=== PATIENT | male | born 1975 | race Caucasian/White ===

== ENCOUNTER 2019-05-12 12:02 | Outpatient (CLI) | payer OTHER, SELFPAY ==
--- NOTE | ~2019-05-12 | XR_ITS ---
EXAMINATION: XR chest 2V DATE: 05/12/2019 12:24 INDICATION: Fever and shortness of breath TECHNIQUE: PA and lateral views of the chest are obtained. COMPARISON: 07/25/2012 FINDINGS: The lungs are free of acute opacities. There is no pleural effusion or pneumothorax. The ca rdiomediastinal silhouette is normal. The visualized bones and soft tissues are unremarkable. IMPRESSION: 1. No acute cardiopulmonary abnormality. Reviewed, dictated and finalized at location A.
== END 2019-05-12 12:03 | disposition home or self-care (01) ==
LOC: ANHIMG 12:09
PROVIDERS: PCP Internal Medicine; Visit Provider Nurse Practitioner
DX: R50.9 Fever, unspecified (principal); R06.02 Shortness of breath; J02.9 Acute pharyngitis, unspecified
CPT/HCPCS: 71046

== ENCOUNTER 2019-05-26 16:23 | Emergency (ER) | payer OTHER, SELFPAY ==
--- NOTE | ~2019-05-26 | XR_ITS ---
EXAMINATION: XR chest 1V portable EXAM DATE: 05/26/2019 16:54 INDICATION: Fever, shortness of breath, headache, sore throat. TECHNIQUE: Frontal and lateral projections of the chest obtained and reviewed. Comparison is made to prior examination from 05/12/2019. FINDINGS: The lungs are clear. There are no pleural effusions. The cardiomediastinal silhouette is within normal limits. There is no pneumothorax suspected. The bones and soft tissues are unremarka ble. IMPRESSION: No acute cardiopulmonary findings. Reviewed, dictated and finalized at location A.
[2019-05-26 16:36] VITALS: BP 123/92; PULSE 77; RESP 20; O2SAT 98
--- NOTE | 2019-05-26 16:39 | ECG_ITS ---
Measurements Intervals [place] Rate: 53 P: 43 WV: 186 QRS: 1 QRSD: 127 T: 35 QT: 402 QTc: 381 Interpretive Statements SINUS BRADYCARDIA INTRAVENTRICULAR CONDUCTION DELAY DELAYED PRECORDIAL R/S TRANSITION BORDERLINE ECG Electronically Signed On 05-27-2019 7:13:55 CDT by Andre Ortiz D.O.
--- NOTE | 2019-05-26 16:40 | ED.GENADULT ---
HPI - General Adult General Chief complaint: Shortness of Breath/Dyspnea <Jordin Valenzuela PA-C - Last Filed: 05/26/19 18:47> Stated complaint: fever, st, diaz <Jordin Valenzuela PA-C - Last Filed: 05/26/19 18:47> Time Seen by Provider: 05/26/19 16:25 <Jordin Valenzuela PA-C - Last Filed: 05/26/19 18:47> Source: patient <Jordin Valenzuela PA-C - Last Filed: 05/26/19 18:47> Mode of arrival: ambulatory <Jordin Valenzuela PA-C - Last Filed: 05/26/19 18:47> Limitations: no limitations <Jordin Valenzuela PA-C - Last Filed: 05/26/19 18:47> History of Present Illness HPI narrative: Patient is a 43-year-old male who presents to emergency department for evaluation of left-sided pleuritic chest pain for the last week had been having rhinorrhea and congestion sore throat initially several weeks ago with nonproductive cough which have resolved but now for the last week is been having pleuritic chest pain and feeling slightly dyspneic has taken Tylenol for his symptoms with no improvement patient denies any current URI symptoms. . Pain is worse with deep breathing and movement. Patient denies vomiting diarrhea. Patient denies sick contact <Jordin Valenzuela PA-C - Last Filed: 05/26/19 18:47> Related Data Allergies/adverse reactions: Allergies Allergy/AdvReac Type Severity Reaction Status Date / Time No Known Allergies Allergy Unknown Unverified 05/26/19 16:36 <Jordin Valenzuela PA-C - Last Filed: 05/26/19 18:47> Review of Systems Review of Systems: All systems reviewed & are unremarkable except as noted in HPI and below <Jordin Valenzuela PA-C - Last Filed: 05/26/19 18:47> PMFSH Past Medical History Medical History: Medical History Bronchitis GERD (gastroesophageal reflux disease) Osteoarthritis <Jordin Valenzuela PA-C - Last Filed: 05/26/19 18:47> Surgical History Surgical History: Surgical History History of vasectomy <Jordin Valenzuela PA-C - Last Filed: 05/26/19 18:47> Family History Family History: Family History (Updated 12/02/18 @ 09:09 by DOCTOR UNKNOWN) Mother Hypertension <Jordin Valenzuela PA-C - Last Filed: 05/26/19 18:47> Social History Social History: Social History Smoking status: Former smoker Alcohol intake: current <Jordin Valenzuela PA-C - Last Filed: 05/26/19 18:47> Exam Narrative: Exam Narrative: GENERAL: Well-appearing, well-nourished, and in no acute distress. HEAD: Normocephalic, atraumatic. EYES: PERRLA and EOMI. ENT: Nares clear, no rhinorrhea or epistaxis. Mucous membranes moist. Oropharynx without tonsillar hypertrophy exudate or other lesions. Bilateral TMs pearly meeks nonbulging CHEST: Clear to auscultation. No respiratory distress. No wheezes rales or rhonchi. Tenderness of the left chest wall HEART: Regular rate and rhythm. No murmur heard. Normal peripheral pulses. ABDOMEN: Soft, nontender, nondistended EXTREMITIES: Normal range of motion. No edema. SKIN: Warm, dry, no rash. NEURO: No focal deficits. Alert and oriented x3. Cranial nerves II through XII grossly intact PSYCH: Normal mood and affect. <Jordin Valenzuela PA-C - Last Filed: 05/26/19 18:47> Course Course Emergency Course: Patient in the room in no distress aware of case findings treatment plan and diagnosis agreeing to follow-up as directed or to return if symptoms worsen or concerns <Jordin Valenzuela PA-C - Last Filed: 05/26/19 18:47> Vital Signs Vital signs: Vital Signs Pulse Rate 77 05/26/19 16:36 Respiratory Rate 20 05/26/19 16:36 Blood Pressure 123/92 H 05/26/19 16:36 Pulse Oximetry 98 05/26/19 16:36 Temperature 36.4 C 05/26/19 18:10 Pulse Rate 68 05/26/19 19:09 Respiratory Rate 20 05/26/19 19:09 Blood Pressure 125/94 H
[2019-05-26 16:53] VITALS: TEMP 37.2
[2019-05-26 18:00] VITALS: PULSE 70
[2019-05-26 18:10] VITALS: BP 130/93; PULSE 55; RESP 10; TEMP 36.4; O2SAT 100; O2SAT 99
[2019-05-26 18:15] LABS: Basophils Absolute Auto 0.1 K/mm3 (0.0-0.1); Basophils Percent Auto 0.8 % (0.2-1.2); Eosinophils Percent Auto 0.5 % (0-4.4); Hematocrit 44.4 % (42.0-52.0); Hemoglobin 15.9 g/dL (14.0-18.0); Immature Granulocyte Absolute 0.02 K/mm3 (0.00-0.031); Immature Granulocyte Percent A 0.3 % (0-0.5); Lymphocytes Absolute Auto 2.09 K/mm3 (0.9-3.2); Lymphocytes Percent Auto 28.1 % (18.3-44.2); Mean Corpuscular HGB Conc 35.8 g/dl (32-36); Mean Corpuscular Hemoglobin 32.6 pg (26-34); Mean Platelet Volume 10.6 fl (7.4-10.4); Monocytes Absolute Auto 0.4 K/mm3 (0.1-0.6); Monocytes Percent Auto 5.2 % (2.6-8.5); Neutrophils Absolute Auto 4.8 K/mm3 (1.3-6.7); Neutrophils Percent Auto 65.1 % (45.5-73.1); Platelet Count Result 184 k/mm3 (150-375); Red Blood Count 4.88 M/mm3 (4.6-6.20); Red Cell Distribution Width 11.9 % (11.5-14.5); White Blood Count 7.4 K/mm3 (4.5-10.0)
[2019-05-26 18:28] LABS: Lipase 88 U/L (23-300)
[2019-05-26 18:29] LABS: Alanine Aminotransferase 15 U/L (4-50); Albumin Level 4.5 g/dL (3.5-5.1); Alkaline Phosphatase 63 U/L (38-126); Aspartate Amino Transferase 21 U/L (17-59); Bilirubin,Total 0.7 mg/dL (0.2-1.3); Blood Urea Nitrogen 21 mg/dL (9-20); Calcium 9.7 mg/dL (8.4-10.2); Carbon Dioxide 22 mmol/L (22-30); Chloride 108 mmol/L (98-107); D Dimer < 0.22 ug/mL (<0.48); Estimated CRCL calculation 99 ml/min; Estimated Glomerular Filt Rate > 60; Glucose 86 mg/dL (75-110); Sodium 139 mmol/L (137-145)
[2019-05-26 18:39] LABS: Troponin I < 0.012 ng/mL (0.000-0.034)
[2019-05-26 19:09] VITALS: BP 125/94; PULSE 68; RESP 20; O2SAT 99
== END 2019-05-26 19:11 | disposition home or self-care (01) ==
PROVIDERS: Emergency Medicine Emergency Medical Services; Emergency Provider Emergency Medicine; PCP Internal Medicine
DX: R07.81 Pleurodynia (principal); K21.9 Gastro-esophageal reflux disease without esophagitis; M19.90 Unspecified osteoarthritis, unspecified site; Z87.891 Personal history of nicotine dependence; R00.1 Bradycardia, unspecified; I45.9 Conduction disorder, unspecified; R94.31 Abnormal electrocardiogram [ECG] [EKG]
CPT/HCPCS: 36415; 71045; 80048; 80076; 83690; 84484; 85025; 85380; 93005; 99284

== ENCOUNTER 2019-06-02 12:29 | Outpatient (CLI) | payer OTHER, SELFPAY ==
--- NOTE | ~2019-06-02 | CT_ITS ---
EXAMINATION: CT chest w con DATE: 06/02/2019 13:42 INDICATION: Chest pain, shortness of breath, fever TECHNIQUE: Computed tomography (CT) of the chest was performed without intravenous contrast. Automate d exposure control and iterative reconstruction technique were employed. Exam dose: 267.22 mGy-cm to zhou exam DLP. COMPARISON: 05/26/2019 portable AP chest FINDINGS: Normal heart size. No pericardial or pleural effusion. No hilar or mediastinal mass lesion or lymphadenopathy. The thyroid gland is normal size and enhances homogeneously, without evidence of any mass lesion. No thoracic aortic aneurysm or dissection. Normal morphology of the adrenal glands. Included upper abdominal structures are unremarkable, other than diverticulosis of the colon. Included skeletal structures are unremarkable. IMPRESSION: No significant abnormality of the chest Diverticulosis of the colon Reviewed, dictated and finalized at Location A. Reviewed, dictated and finalized at location A.
[2019-06-02 13:16] LABS: Erythrocyte Sedimentation Rate 4 mm/hr (0-20)
[2019-06-02 13:25] LABS: Monoscreen Negative (Negative); Positive Monotest Control Positive (Positive)
[2019-06-02 13:26] LABS: Negative Monotest Control Negative (Negative)
[2019-06-04 19:55] LABS: CMV IgG Antibody <0.60 U/mL (<0.60)
[2019-06-04 20:46] LABS: CMV IgM Antibody <30.00 AU/mL (<30.00)
== END 2019-06-02 12:30 | disposition home or self-care (01) ==
LOC: ANHIMG 12:29
PROVIDERS: PCP Internal Medicine; Visit Provider Internal Medicine
DX: R50.9 Fever, unspecified (principal); R07.89 Other chest pain; K57.90 Diverticulosis of intestine, part unspecified, without perforation or abscess without bleeding
CPT/HCPCS: 36415; 71260; 85652; 86308; 86644; 86645; Q9967

== ENCOUNTER 2019-06-11 11:51 | Outpatient (CLI) | payer OTHER, SELFPAY ==
[2019-06-11 12:31] LABS: Influenza Control Positive
== END 2019-06-11 11:52 | disposition home or self-care (01) ==
LOC: ANHLAB 11:53
PROVIDERS: PCP Internal Medicine; Visit Provider Internal Medicine
DX: R50.9 Fever, unspecified (principal)
CPT/HCPCS: 87081; 87804; 87880

== ENCOUNTER 2021-07-28 11:15 | Outpatient (CLI) | payer OTHER, SELFPAY ==
[2021-07-28 11:41] LABS: Add Urine Microscopic? NO; Appearance Urine Clear (Clear); Bilirubin Urine Negative (Negative); Blood Urine Negative (Negative); Color Urine Yellow (Yellow); Glucose Urine UA Negative (Negative); Ketones Urine Negative (Negative); Leukocyte Esterase Ur Negative LEU/UL (Negative); Nitrate Urine Negative (Negative); Protein Urine Negative (Negative); Urobilinogen Urine 0.2 mg/dL (<2.0); pH Urine 6.5 (5.0-9.0)
[2021-07-28 11:57] LABS: HIV 1/2 Ab P24 Ag Result Negative (Negative)
[2021-07-28 12:18] LABS: Hepatitis C Virus Antibody Negative (Negative)
[2021-07-28 17:18] LABS: Rapid Plasma Reagin Non-Reactive (NonReactive)
[2021-08-01 16:22] LABS: Herpes Simplex Type 1 DNA PCR Not Detected
== END 2021-07-28 11:16 | disposition home or self-care (01) ==
LOC: ANHLAB 11:16
PROVIDERS: PCP Internal Medicine; Visit Provider Nurse Practitioner
DX: R30.0 Dysuria (principal); R23.1 Pallor
CPT/HCPCS: 36415; 81003; 86592; 86703; 86803; 87491; 87529; 87591; G0432

== ENCOUNTER 2022-01-16 08:38 | Outpatient (CLI) | payer OTHER, SELFPAY ==
[2022-01-16 19:02] LABS: Basophils Absolute Auto 0.1 K/mm3 (0.0-0.1); Basophils Percent Auto 1.3 % (0.2-1.2); Eosinophils Absolute Auto 0.4 K/mm3 (0-0.3); Eosinophils Percent Auto 7.7 % (0-4.4); Hematocrit 46.6 % (42.0-52.0); Hemoglobin 15.9 g/dL (14.0-18.0); Immature Granulocyte Absolute 0.01 K/mm3 (0.00-0.031); Immature Granulocyte Percent A 0.2 % (0-0.5); Lymphocytes Absolute Auto 2.01 K/mm3 (0.9-3.2); Lymphocytes Percent Auto 36.1 % (18.3-44.2); Mean Corpuscular HGB Conc 34.1 g/dl (32-36); Mean Corpuscular Volume 96.7 fl (80-100); Mean Platelet Volume 11.8 fl (7.4-10.4); Monocytes Absolute Auto 0.3 K/mm3 (0.1-0.6); Monocytes Percent Auto 6.1 % (2.6-8.5); Neutrophils Absolute Auto 2.7 K/mm3 (1.3-6.7); Neutrophils Percent Auto 48.6 % (45.5-73.1); Platelet Count Result 197 k/mm3 (150-375); Red Blood Count 4.82 M/mm3 (4.6-6.20); Red Cell Distribution Width 12.1 % (11.5-14.5); White Blood Count 5.6 K/mm3 (4.5-10.0)
[2022-01-16 19:04] LABS: Alanine Aminotransferase 24 U/L (6-50); Albumin Level 4.1 g/dL (3.5-5.1); Alkaline Phosphatase 59 U/L (38-126); Anion Gap 2 mmol/L (8-16); Aspartate Amino Transferase 56 U/L (17-59); Bilirubin,Total 0.5 mg/dL (0.2-1.3); Blood Urea Nitrogen 18 mg/dL (9-20); Calcium 9.1 mg/dL (8.4-10.2); Carbon Dioxide 30 mmol/L (22-30); Chloride 108 mmol/L (98-107); Cholesterol 156 mg/dL (0-200); Estimated Glomerular Filt Rate > 60; Glucose 88 mg/dL (65-110); HDL Direct 49 mg/dL; Potassium 4.3 mmol/L (3.4-5.0); Sodium 140 mmol/L (137-145); Triglycerides 66 mg/dL (<150)
[2022-01-16 19:15] LABS: LDL Cholesterol Direct 80 mg/dL
== END 2022-01-16 08:39 | disposition home or self-care (01) ==
LOC: ANHGOSHLAB 08:39
PROVIDERS: PCP Internal Medicine; Visit Provider Nurse Practitioner
DX: R13.10 Dysphagia, unspecified (principal)
CPT/HCPCS: 36415; 80053; 80061; 85025

== ENCOUNTER 2022-01-26 00:21 | Day surgery (SDC) | payer OTHER, SELFPAY ==
[2022-01-17 13:13] VITALS: BMI 27.3
--- NOTE | 2022-01-25 20:28 | PM.HPGS ---
History of Present Illness History of Present Illness Consent: Risks, benefits, and alternatives have been discussed and questions answered. Patient agrees to proceed with procedure. Chief complaint: dysphagia Narrative: Buzz Knight is a 46 year old male Referred for investigation of dysphagia. He has had dysphagia for solid foods for the past 2 years. He has history of acid reflux and has been on medications in the past But usually he takes [id number] Prevacid as needed . Twice in last few weeks he has had food get stuck and 1 time he needed a Heimlich maneuver to get it out. He felt that he could not breathe that happened. He has most difficulty with rice meat and pasta. Review of Systems Review of Systems: All systems reviewed & are unremarkable except as noted in HPI and below PMFSH Past Medical History Medical History Bronchitis GERD (gastroesophageal reflux disease) Osteoarthritis Surgical History Surgical History History of vasectomy Family History Family History Mother Hypertension Social History Social History Social History: Caffeine-coffee Smoking status: Former smoker Tobacco type: cigarettes Alcohol intake: current Drinks per week: 10 Alcohol use details: social Substance use: never Lack of Transportation: No Lack of Food: Never True Current Housing: I Have Housing Concerned About Future Housing: No Difficulty Paying Gas/Electric Bills: No Difficulty Paying for Meds: No Currently Unemployed: No Education: Master's Degree or Higher Difficulty w/ Childcare or Family Care: No Living arrangements: with family Spiritual care concerns: No Meds Home Medications and Allergies Home Medications Medication Instructions Recorded Confirmed Type No Home Medications 01/25/22 01/25/22 History Allergies Allergy/AdvReac Type Severity Reaction Status Date / Time No Known Allergies Allergy Unknown Verified 01/26/22 10:13 Exam Const: General: alert Orientation/consciousness: patient oriented x3 Resp: Auscultation: clear to auscultation bilaterally Cardio: Rhythm: regular rhythm GI: GI Palp: Yes Soft to palpation and No Tenderness to palpation present (GI) Neuro: General: patient oriented x3 Assessment and Plan Assessment and plan (1) Dysphagia: Code(s): R13.10 - Dysphagia, unspecified Status: Acute Assessment and Plan: EGD with possible biopsy or dilatation or cautery.
[2022-01-26 10:14] VITALS: BP 129/83; PULSE 71; RESP 17; TEMP 36.3; O2SAT 99
[2022-01-26] MEDS: LACTATED RINGERS 1,000 ML 150 ML IV CONT (10:25)
--- NOTE | 2022-01-26 11:11 | WPDANESEPPF ---
Anes - Initial Pre Proc Eval Procedure: Operation Date: 01/26/22 11:00 Proposed Procedures p Esophagogastroduodenoscopy EGD - Cory Valdes MD Date/Time: 01/26/22 11:11 Surgeon: Cory Valdes MD Pre Op Diagnosis: dysphagia Patient Data Age: 46 Gender: M Height: 1.78 m Weight: 86.7 kg Last Vital Signs Temp 97.3 F L 01/26/22 10:14 Pulse 71 01/26/22 10:14 Resp 17 01/26/22 10:14 BP 129/83 01/26/22 10:14 Pulse Ox 99 01/26/22 10:14 O2 Del Method Room Air 01/26/22 10:14 Allergies Allergy/AdvReac Type Severity Reaction Status Date / Time No Known Allergies Allergy Unknown Verified 01/26/22 10:13 Home Medications Medication Instructions Recorded Confirmed Type No Home Medications 01/25/22 01/25/22 History Patient hx anesthesia problems: none Family hx anesthesia problems: none Results Review: All pre-operative results and documents have been reviewed as part of the pre-operative evaluation. COUNTS INCLUDE 234 BEDS AT THE [facility] Past Medical History Medical History Bronchitis GERD (gastroesophageal reflux disease) Osteoarthritis Surgical History Surgical History History of vasectomy Family History Family History Mother Hypertension Social History Social History Social History: Caffeine-coffee Smoking status: Former smoker Tobacco type: cigarettes Alcohol intake: current Drinks per week: 10 Alcohol use details: social Substance use: never Lack of Transportation: No Lack of Food: Never True Current Housing: I Have Housing Concerned About Future Housing: No Difficulty Paying Gas/Electric Bills: No Difficulty Paying for Meds: No Currently Unemployed: No Education: Master's Degree or Higher Difficulty w/ Childcare or Family Care: No Living arrangements: with family Spiritual care concerns: No Anes - Eval Final PreProcedure Day of Procedure 01/26/22 11:11 Patient weight: normal Heart: regular rate and rhythm Lungs: clear to auscultation Airway: Mallampati scale class II Neurological: alert and oriented Last oral intake: >/= 8 hours ASA classification: II Emergent: no Anesthetic plan: proceed Anesthesia type and monitoring: general GIVS and standard monitoring Results Review: All pre-operative results and documents have been reviewed as part of the pre-operative evaluation. Informed Consent: The patient's anesthetic plan and its attendant risks and benefits were discussed with the patient/family/POA. Questions were solicited and answers provided to the satisfaction of the patient/family/POA.
[2022-01-26] MEDS: BENZOCAINE (*SP) 60 ML SPRAY CAN (HURRICAINE) 1 SPRAY MUCOUS MEM (11:16)
[2022-01-26 11:29] VITALS: BP 95/65; PULSE 78; RESP 18; O2SAT 95
[2022-01-26 11:39] VITALS: BP 97/65; PULSE 50; RESP 14; O2SAT 98
[2022-01-26 11:49] VITALS: BP 106/69; PULSE 50; RESP 19; O2SAT 99
== END 2022-01-26 12:14 | disposition home or self-care (01) ==
PROVIDERS: PCP Internal Medicine; Visit Provider Internal Medicine Gastroenterology
PROC: 0DJ08ZZ Inspection of Upper Intestinal Tract, Via Natural or Artificial Opening Endoscopic (ICD-10-PCS; CPT 43235; principal; 2022-01-26 11:00)
DX: R13.10 Dysphagia, unspecified (principal); K22.2 Esophageal obstruction; K21.00 Gastro-esophageal reflux disease with esophagitis, without bleeding; M19.90 Unspecified osteoarthritis, unspecified site; Z87.891 Personal history of nicotine dependence
CPT/HCPCS: 43239; 43249; 88305; C1726; J2704; J7120

== ENCOUNTER 2022-05-22 07:06 | Outpatient (CLI) | payer OTHER, SELFPAY ==
[2022-05-22 07:20] LABS: Basophils Absolute Auto 0.1 K/mm3 (0.0-0.1); Basophils Percent Auto 1.1 % (0.2-1.2); Eosinophils Absolute Auto 0.5 K/mm3 (0-0.3); Eosinophils Percent Auto 7.4 % (0-4.4); Hematocrit 44.6 % (42.0-52.0); Hemoglobin 15.3 g/dL (14.0-18.0); Immature Granulocyte Absolute 0.01 K/mm3 (0.00-0.031); Immature Granulocyte Percent A 0.2 % (0-0.5); Lymphocytes Absolute Auto 2.51 K/mm3 (0.9-3.2); Lymphocytes Percent Auto 40.6 % (18.3-44.2); Mean Corpuscular HGB Conc 34.3 g/dl (32-36); Mean Corpuscular Hemoglobin 32.8 pg (26-34); Mean Corpuscular Volume 95.5 fl (80-100); Mean Platelet Volume 10.4 fl (7.4-10.4); Monocytes Absolute Auto 0.5 K/mm3 (0.1-0.6); Monocytes Percent Auto 7.9 % (2.6-8.5); Neutrophils Absolute Auto 2.6 K/mm3 (1.3-6.7); Neutrophils Percent Auto 42.8 % (45.5-73.1); Platelet Count Result 182 k/mm3 (150-375); Red Blood Count 4.67 M/mm3 (4.6-6.20); White Blood Count 6.2 K/mm3 (4.5-10.0)
[2022-05-22 07:38] LABS: Alanine Aminotransferase 17 U/L (6-50); Albumin Level 4.2 g/dL (3.5-5.1); Alkaline Phosphatase 54 U/L (38-126); Amylase 76 U/L (30-110); Anion Gap 5 mmol/L (8-16); Aspartate Amino Transferase 18 U/L (17-59); Bilirubin,Total 0.6 mg/dL (0.2-1.3); Blood Urea Nitrogen 16 mg/dL (9-20); Carbon Dioxide 27 mmol/L (22-30); Chloride 108 mmol/L (98-107); Estimated Glomerular Filt Rate > 60; Glucose 113 mg/dL (65-110); Lipase 234 U/L (23-300); Potassium 4.1 mmol/L (3.4-5.0); Sodium 140 mmol/L (137-145)
== END 2022-05-22 07:07 | disposition home or self-care (01) ==
LOC: ANHLAB 07:06
PROVIDERS: PCP Internal Medicine; Visit Provider Clinical Nurse Specialist
DX: R10.10 Upper abdominal pain, unspecified (principal)
CPT/HCPCS: 36415; 80053; 82150; 83690; 84443; 85025

== ENCOUNTER → 2022-05-25 14:11 | Outpatient (CLI) | payer OTHER, SELFPAY ==
--- NOTE | ~2022-05-25 | CT_ITS ---
EXAMINATION: CT abdomen pelvis w con INDICATION: Abdominal pain TECHNIQUE: Computed tomographic images of the abdomen and pelvis were obtained after the administrati on of 100 cc of Omnipaque 350 intravenous contrast. The dose-length product (DLP) was 840.81 mGy-cm. Automated exposure control and iterative reconstruction technique were employed. COMPARISON: 06/18/2007 FINDINGS: The lung bases are clear. The heart size is normal. Tiny hypoattenuating lesions of the nahomy er measuring up to 3 mm likely represent cysts. The spleen, pancreas, gallbladder, and adrenal glands are normal. The kidneys are unremarkable. No pathologically enlarged abdominal or pelvic lymph nodes are identified. There is no free intraperitoneal gas or evidence of bowel obstruction. Colonic diver ticulosis is present without evidence of diverticulitis. There are bilateral L4 pars defects with gra de 1 anterolisthesis of L4 on L5. IMPRESSION: 1. No CT correlate for the patient's symptoms. Reviewed, dictated and finalized at location F.
== END ==
PROVIDERS: PCP Internal Medicine; Visit Provider Clinical Nurse Specialist
DX: R10.12 Left upper quadrant pain (principal); R10.11 Right upper quadrant pain
CPT/HCPCS: 74177; Q9967

== ENCOUNTER 2022-06-14 10:24 | Outpatient (CLI) | payer OTHER, SELFPAY ==
--- NOTE | ~2022-06-14 | US_ITS ---
Abdominal Sonogram: Real-time sonographic imaging of the abdomen was performed. Clinical History: Epigastric pain Findings: The liver appears normal with no evidence of mass lesion or bile duct dilatation. Main por zhou vein demonstrates normal direction of flow. The spleen is normal in size without evidence of foca l lesion. The gallbladder is well distended, and appears normal with no evidence of gallstone or wal l thickening. The common bile duct measures 4 mm. The visualized pancreas, aorta, and IVC are unrema rkable. The right kidney measures 9.7 cm in length and the left kidney measures 10.0 cm. There is n o hydronephrosis or renal calculus. Impression: Unremarkable abdominal ultrasound. Reviewed, dictated and finalized at location . Impression: Unremarkable abdominal ultrasound.
== END 2022-06-14 10:25 | disposition home or self-care (01) ==
PROVIDERS: PCP Internal Medicine; Visit Provider Internal Medicine Gastroenterology
DX: R10.13 Epigastric pain (principal)
CPT/HCPCS: 76700

== ENCOUNTER 2022-08-10 00:39 | Day surgery (SDC) | payer OTHER, SELFPAY ==
[2022-07-17 14:59] VITALS: BMI 26.4
[2022-08-10 12:47] VITALS: BP 111/83; PULSE 95; RESP 20; TEMP 36.4; O2SAT 94; BMI 25.9
[2022-08-10] MEDS: LACTATED RINGERS 1,000 ML 150 ML IV CONT (12:50)
--- NOTE | 2022-08-10 12:56 | P.PNAN_ITS ---
Anes - Initial Pre Proc Eval Procedure: Operation Date: 08/10/22 13:30 Proposed Procedures p Esophagogastroduodenoscopy & Screening Colonoscopy - Cory Valdes MD Date/Time: 08/10/22 12:56 Surgeon: Cory Valdes MD Pre Op Diagnosis: dysphagia, neoplasm screening Patient Data Age: 46 Gender: M Height: 1.8 m Weight: 84.3 kg Last Vital Signs Temp 97.6 F 08/10/22 12:47 Pulse 95 08/10/22 12:47 Resp 20 08/10/22 12:47 BP 111/83 08/10/22 12:47 Pulse Ox 94 08/10/22 12:47 O2 Del Method Room Air 08/10/22 12:47 Allergies Allergy/AdvReac Type Severity Reaction Status Date / Time No Known Allergies Allergy Unknown Verified 08/10/22 12:46 Home Medications Medication Instructions Recorded Confirmed Type pantoprazole 40 mg tablet,delayed 40 mg PO QAM #30 tabs 06/05/22 08/10/22 Rx release Patient hx anesthesia problems: none Family hx anesthesia problems: none Results Review: All pre-operative results and documents have been reviewed as part of the pre- operative evaluation. [facility] Past Medical History Medical History Bronchitis GERD (gastroesophageal reflux disease) Osteoarthritis Surgical History Surgical History History of vasectomy Family History Family History Mother Hypertension Social History Social History Social History: Caffeine-coffee Smoking status: Former smoker Tobacco type: cigarettes Alcohol intake: current Drinks per week: 12 Alcohol use details: BEERS Substance use: never Substance use type: does not use Lack of Transportation: No Lack of Food: Never True Current Housing: I Have Housing Concerned About Future Housing: No Difficulty Paying Gas/Electric Bills: No Difficulty Paying for Meds: No Currently Unemployed: No Education: Master's Degree or Higher Difficulty w/ Childcare or Family Care: No Living arrangements: with family Spiritual care concerns: No Anes - Eval Final PreProcedure Day of Procedure 08/10/22 12:56 Patient weight: normal Heart: regular rate and rhythm Lungs: clear to auscultation Airway: Mallampati scale class II Neurological: alert and oriented Last oral intake: >/= 8 hours ASA classification: II Emergent: no Anesthetic plan: proceed Anesthesia type and monitoring: general GIVS and standard monitoring Results Review: All pre-operative results and documents have been reviewed as part of the pre- operative evaluation. Informed Consent: The patient's anesthetic plan and its attendant risks and benefits were discussed with the patient/family/POA. Questions were solicited and answers provided to the satisfaction of the patient/family/POA.
--- NOTE | 2022-08-10 12:57 | PM.HPGS ---
History of Present Illness History of Present Illness Consent: Risks, benefits, and alternatives have been discussed and questions answered. Patient agrees to proceed with procedure. Chief complaint: dysphagia, neoplasm screening Narrative: Buzz Knight is a 46 year old male with difficulty swallowing solid food. 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 He also had grade 3 esophagitis and was treated with pantoprazole. 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 Now he is having d ifficulty swallowing again. A few weeks ago he had severe pain in the epigastric area that he thought might be due to pancreatitis as he had had some beer the night before. CT scan however was unremarkable and a subsequent ultrasound also was negative. He is due for colon cancer screening. Review of Systems Review of Systems: All systems reviewed & are unremarkable except as noted in HPI and below PMFSH Past Medical History Medical History Bronchitis GERD (gastroesophageal reflux disease) Osteoarthritis Surgical History Surgical History History of vasectomy Family History Family History Mother Hypertension Social History Social History Social History: Caffeine-coffee Smoking status: Former smoker Tobacco type: cigarettes Alcohol intake: current Drinks per week: 12 Alcohol use details: BEERS Substance use: never Substance use type: does not use Lack of Transportation: No Lack of Food: Never True Current Housing: I Have Housing Concerned About Future Housing: No Difficulty Paying Gas/Electric Bills: No Difficulty Paying for Meds: No Currently Unemployed: No Education: Master's Degree or Higher Difficulty w/ Childcare or Family Care: No Living arrangements: with family Spiritual care concerns: No Meds Home Medications and Allergies Home Medications Medication Instructions Recorded Confirmed Type pantoprazole 40 mg tablet,delayed 40 mg PO QAM #30 tabs 06/05/22 08/10/22 Rx release Allergies Allergy/AdvReac Type Severity Reaction Status Date / Time No Known Allergies Allergy Unknown Verified 08/10/22 12:46 Vital Signs Vital Signs - 24 hr 08/10/22 12:47 Temperature 36.4 C Pulse Rate 95 Respiratory Rate 20 Blood Pressure 111/83 Pulse Oximetry 94 Oxygen Delivery Room Air Exam Const: General: alert Orientation/consciousness: patient oriented x3 Resp: Auscultation: clear to auscultation bilaterally Cardio: Rhythm: regular rhythm GI: GI Palp: Yes Soft to palpation and No Tenderness to palpation present (GI) Neuro: General: patient oriented x3 Assessment and Plan Assessment and plan (1) Dysphagia: Code(s): R13.10 - Dysphagia, unspecified Status: Acute Assessment and Plan: EGD with possible biopsy or dilatation or cautery. (2) Encounter for screening colonoscopy: Code(s): Z12.11 - Encounter for screening for malignant neoplasm of colon Status: Acute Assessment and Plan: Colonoscopy with possible biopsy or polypectomy or cautery or injection of substances.
[2022-08-10] MEDS: BENZOCAINE (*SP) 60 ML SPRAY CAN (HURRICAINE) 1 SPRAY MUCOUS MEM (13:42)
--- NOTE | 2022-08-10 13:55 | SUR.OPER ---
EGD ended 1352 colonoscopy started 1402
[2022-08-10 14:16] VITALS: BP 95/63; PULSE 114; RESP 14; O2SAT 95
[2022-08-10 14:26] VITALS: BP 107/60; PULSE 110; RESP 18; O2SAT 95
[2022-08-10 14:36] VITALS: BP 88/60; PULSE 90; RESP 18; O2SAT 98
[2022-08-10 14:46] VITALS: BP 109/68; PULSE 84; RESP 17; O2SAT 99
== END 2022-08-10 15:03 | disposition home or self-care (01) ==
PROVIDERS: PCP Internal Medicine; Visit Provider Internal Medicine Gastroenterology
PROC: 0DJ08ZZ Inspection of Upper Intestinal Tract, Via Natural or Artificial Opening Endoscopic (ICD-10-PCS; CPT 43235; principal; 2022-08-10 13:30)
DX: Z12.11 Encounter for screening for malignant neoplasm of colon (principal); K57.30 Diverticulosis of large intestine without perforation or abscess without bleeding; K63.5 Polyp of colon; K64.8 Other hemorrhoids; K20.0 Eosinophilic esophagitis; Z87.891 Personal history of nicotine dependence
CPT/HCPCS: 45385; 43249; 88305; C1726; J2704; J7120

== ENCOUNTER 2022-09-12 13:37 | Outpatient (CLI) | payer OTHER, SELFPAY ==
--- NOTE | 2022-09-12 14:30 | NEURO_ITS ---
Impression: # Complains of pain in right upper extremity. # Normal Nerve Conduction Study. # Normal needle/EMG exam except mildly neurogenic right 1st DI and ADM muscles. # Clinical correlation recommended; Question of higher involvement. Nerve Conduction Studies Anti Sensory Summary Table Stim Site NR Peak (ms) P-T Amp (?V) Site1 Site2 Delta-P (ms) Dist (cm) Lucio (m/s) Left Median Anti Sensory (2-3nd Digit) Wrist 3.1 82.6 Wrist 2-3nd Digit 3.1 14.0 45 Wrist 3.0 50.7 Wrist 2-3nd Digit 3.1 14.0 45 Right Median Anti Sensory (2-3nd Digit) Wrist 2.9 67.3 Wrist 2-3nd Digit 2.9 14.0 48 Wrist 3.1 49.9 Wrist 2-3nd Digit 2.9 14.0 48 Left Radial Anti Sensory (Base 1st Digit) Wrist 2.0 35.5 Wrist Base 1st Digit 2.0 0.0 Right Radial Anti Sensory (Base 1st Digit) Wrist 2.2 32.7 Wrist Base 1st Digit 2.2 0.0 Left Ulnar Anti Sensory (5th Digit) Wrist 2.8 54.5 Wrist 5th Digit 2.8 14.0 50 Right Ulnar Anti Sensory (5th Digit) Wrist 2.8 40.3 Wrist 5th Digit 2.8 14.0 50 Motor Summary Table Stim Site NR Onset (ms) O-P Amp (mV) Site1 Site2 Delta-0 (ms) Dist (cm) Lucio (m/s) Left Median Motor (Abd Poll Brev) Wrist 3.4 5.7 Elbow Wrist 4.9 30.0 61 Elbow 8.3 2.6 Right Median Motor (Abd Poll Brev) Wrist 3.6 7.9 Elbow Wrist 4.8 30.0 62 Elbow 8.4 5.8 Left Ulnar Motor (Abd Dig Minimi) Wrist 2.8 4.8 A Elbow Wrist 4.9 29.0 59 A Elbow 7.7 3.7 Right Ulnar Motor (Abd Dig Minimi) Wrist 2.9 7.8 A Elbow Wrist 4.9 30.0 61 A Elbow 7.8 6.8 F Wave Studies NR F-Lat (ms) L-R F-Lat (ms) Left Median (Mrkrs) (Abd Poll Brev) 27.70 0.00 Right Median (Mrkrs) (Abd Poll Brev) 27.70 0.00 Left Ulnar (Mrkrs) (Abd Dig Min) 26.78 0.00 Right Ulnar (Mrkrs) (Abd Dig Min) 26.78 0.00 EMG Side Muscle Nerve Root Ins Act Fibs Amp Dur Recrt Comment Right 1stDorInt Ulnar C8-T1 Nml Nml Nml >12ms Nml Right Ext Indicis Radial (Post Int) C7-8 Nml Nml Nml Nml Nml Right Ext Digitorum Radial (Post Int) C7-8 Nml Nml Nml Nml Nml Right BrachioRad Radial C5-6 Nml Nml Nml Nml Nml Right PronatorTeres Median C6-7 Nml Nml Nml Nml Nml Right Abd Poll Brev Median C8-T1 Nml Nml Nml Nml Nml Left 1stDorInt Ulnar C8-T1 Nml Nml Nml Nml Nml Left Ext Indicis Radial (Post Int) C7-8 Nml Nml Nml Nml Nml Left Ext Digitorum Radial (Post Int) C7-8 Nml Nml Nml Nml Nml Left BrachioRad Radial C5-6 Nml Nml Nml Nml Nml Left PronatorTeres Median C6-7 Nml Nml Nml Nml Nml Left Abd Poll Brev Median C8-T1 Nml Nml Nml Nml Nml Right ABD Dig Min Ulnar C8-T1 Nml Nml Nml >12ms Nml Right Biceps Musculocut C5-6 Nml Nml Nml Nml Nml Right Triceps Radial C6-7-8 Nml Nml Nml Nml Nml Right Deltoid Axillary C5-6 Nml Nml Nml Nml Nml Left ABD Dig Min Ulnar C8-T1 Nml Nml Nml Nml Nml Left Biceps Musculocut C5-6 Nml Nml Nml Nml Nml Left Triceps Radial C6-7-8 Nml Nml Nml Nml Nml Left Deltoid Axillary C5-6 Nml Nml Nml Nml Nml MTDD
== END 2022-09-12 13:38 | disposition home or self-care (01) ==
LOC: ANHNEURO 13:38
PROVIDERS: PCP Internal Medicine; Visit Provider Orthopaedic Surgery
DX: G56.21 Lesion of ulnar nerve, right upper limb (principal); G56.31 Lesion of radial nerve, right upper limb
CPT/HCPCS: 95886; 95911

== ENCOUNTER → 2022-11-21 08:12 | Outpatient (CLI) | payer OTHER, SELFPAY ==
--- NOTE | ~2022-11-21 | CT_ITS ---
EXAMINATION: CT IAC/mastoids BI wo con DATE: 11/21/2022 08:34 INDICATION: Dysfunction of eustachian tube, unspecified laterality. Left ear fullness and popping. TECHNIQUE: Computed tomography (CT) of the temporal bones was performed without intravenous contrast. Automated exposure control and iterative reconstruction technique were employed. The dose-length pro duct was 373.46 mGy-cm. COMPARISON: None FINDINGS: The nasopharynx is normal. RIGHT TEMPORAL BONE: Internal auditory canal, cochlea, vestibule, semicircular canals, vestibular aqueduct, facial nerve c ourse, carotid canal, jugular bulb, ossicles, Prussak space, scutum, and tympanic membrane are normal . There is a small right mastoid effusion. The external auditory canal is normal. LEFT TEMPORAL BONE: The internal auditory canal, cochlea, vestibule, semicircular canals, vestibular aqueduct, carotid ca nal, jugular bulb, facial nerve course, ossicles, tympanic membrane, Prussak space, scutum, and masto id air cells are normal. There is trace amount of cerumen in the external auditory canal. IMPRESSION: 1. No etiology for the patient's symptoms. Reviewed, dictated and finalized at location A.
== END ==
DX: H69.80 Other specified disorders of Eustachian tube, unspecified ear (principal); H93.8X2 Other specified disorders of left ear
CPT/HCPCS: 70480

== ENCOUNTER 2023-02-01 08:07 | Outpatient (CLI) | payer OTHER, SELFPAY ==
[2023-02-01 08:37] LABS: Basophils Absolute Auto 0.1 K/mm3 (0.0-0.1); Basophils Percent Auto 1.4 % (0.2-1.2); Eosinophils Absolute Auto 0.3 K/mm3 (0-0.3); Eosinophils Percent Auto 4.7 % (0-4.4); Hematocrit 48.4 % (42.0-52.0); Hemoglobin 16.4 g/dL (14.0-18.0); Immature Granulocyte Absolute 0.01 K/mm3 (0.00-0.031); Immature Granulocyte Percent A 0.2 % (0-0.5); Lymphocytes Absolute Auto 2.15 K/mm3 (0.9-3.2); Lymphocytes Percent Auto 37.4 % (18.3-44.2); Mean Corpuscular HGB Conc 33.9 g/dl (32-36); Mean Corpuscular Hemoglobin 32.7 pg (26-34); Mean Corpuscular Volume 96.4 fl (80-100); Mean Platelet Volume 10.5 fl (7.4-10.4); Monocytes Absolute Auto 0.4 K/mm3 (0.1-0.6); Monocytes Percent Auto 7.7 % (2.6-8.5); Neutrophils Absolute Auto 2.8 K/mm3 (1.3-6.7); Neutrophils Percent Auto 48.6 % (45.5-73.1); Platelet Count Result 177 k/mm3 (150-375); Red Blood Count 5.02 M/mm3 (4.6-6.20); Red Cell Distribution Width 12.3 % (11.5-14.5); White Blood Count 5.8 K/mm3 (4.5-10.0)
[2023-02-01 08:46] LABS: Alanine Aminotransferase 17 U/L (6-50); Albumin Level 4.1 g/dL (3.5-5.1); Alkaline Phosphatase 64 U/L (38-126); Anion Gap 6 mmol/L (8-16); Aspartate Amino Transferase 20 U/L (17-59); Bilirubin,Total 0.6 mg/dL (0.2-1.3); Blood Urea Nitrogen 21 mg/dL (9-20); Calcium 9.7 mg/dL (8.4-10.2); Carbon Dioxide 26 mmol/L (22-30); Chloride 108 mmol/L (98-107); Cholesterol 172 mg/dL (0-200); Estimated Glomerular Filt Rate > 60; Glucose 101 mg/dL (65-110); HDL Direct 55 mg/dL; Potassium 4.3 mmol/L (3.4-5.0); Sodium 140 mmol/L (137-145); Triglycerides 51 mg/dL (<150)
[2023-02-01 08:57] LABS: LDL Cholesterol Direct 92 mg/dL
== END 2023-02-01 08:08 | disposition home or self-care (01) ==
LOC: ANHLAB 08:08
PROVIDERS: PCP Internal Medicine; Visit Provider Nurse Practitioner
DX: Z13.220 Encounter for screening for lipoid disorders (principal); K21.9 Gastro-esophageal reflux disease without esophagitis
CPT/HCPCS: 36415; 80053; 80061; 85025

== ENCOUNTER 2023-02-21 08:49 | Outpatient (CLI) | payer OTHER, SELFPAY ==
--- NOTE | 2023-02-25 18:10 | WPDHOMESLEEP ---
Sleep Study - Home Unattended Date of Study: 02/21/23 Ordering Provider: Lona Busch NP Interpreting Provider: Tracy Malik, DO Home Sleep Study Type: Watch PAT Height: 1.78 m Weight: 86.183 kg Body Mass Index: 27.2 Neck Circumference (inches): 14.5 [place]: 5 Reason for Sleep Study Loud snoring, witnessed apneas Sleep History The patient is a 47-year-old male with GERD, eosinophilic esophagitis, history of tobacco use and osteoarthritis that had a sleep study ordered by his primary care for evaluation of sleep apnea. The patient denies awakening from sleep short of breath. He frequently awakens at night with heartburn, belching or cough. He frequently snores and is occasionally loud enough that others complain. He frequently has trouble sleeping when he has a cold. He denies waking up gasping for air throughout the night. He occasionally has breathing problems at night observed by himself or others. He constantly sweats excessively at night. He denies having heart palpitations or irregular heartbeats during the night. He rarely falls asleep during the day but never while driving. He denies cataplexy. He rarely has trouble at school or work due to sleepiness. He rarely feels unable to move 1 waking up or falling asleep. He occasionally experiences vivid dreamlike scenes upon awakening or falling asleep. He denies feeling afraid of going to sleep. He rarely has nightmares. He occasionally remembers his dreams. He denies having thoughts racing through his mind. He denies feeling sad, depressed or anxious. He denies having muscular tension. He occasionally notices parts of his body jerk. He occasionally kicks during the night. He denies having crawling and aching feelings in his legs but rarely has leg pain during the night. He occasionally grinds his teeth during sleep but rarely awakens with morning jaw pain. He denies being bothered by pain during the day and denies being awakened by pain during the night. He occasionally wakes up feeling stiff in the morning. He occasionally wakes up with sore or achy muscles. He occasionally wakes up with pain in the neck, spine and other joints. He goes to bed at 10:00 p.m. on weekdays and 11:00 p.m. on the weekends. It takes him 15-20 minutes to fall asleep. He wakes up 2-3 times throughout the night to urinate and it can take 15-20 minutes for him to fall back asleep. He wakes up at 5:30 a.m. on weekdays and at 6:30 a.m. on weekends. He typically gets 6-7 hours of sleep per night. He will stay in bed for 20 minutes after waking up in the morning. He currently lives with his daughter. He denies consuming any caffeinated beverages within 2 hours of bedtime. He denies engaging in physical exercise before bedtime. He denies reading and watching television before falling asleep. He denies taking naps in afternoon or the evening. He consumes 3 cups of coffee per day. He quit smoking cigarettes 10 years ago. He consumes 12-18 beers per week. He denies recreational drug use. [facility] Past Medical History Medical History Bronchitis GERD (gastroesophageal reflux disease) Osteoarthritis Surgical History Surgical History History of vasectomy Family History Family History Mother Hypertension Social History Social History Social History: Caffeine-coffee Smoking status: Former smoker Tobacco type: cigarettes Alcohol intake: current Drinks per week: 12 Alcohol use details: BEERS Substance use: never Substance use type: does not use Lack of Transportation: No Lack of Food: Never True Current Housing: I Have Housing Concerned About Future Housing: No Difficulty Paying Gas/Electric Bills: No Difficulty Paying for Meds:
[2023-02-25 18:20] VITALS: BMI 27.2
== END 2023-02-22 07:30 | disposition home or self-care (01) ==
LOC: ANHCSM 08:50
PROVIDERS: PCP Internal Medicine; Visit Provider Nurse Practitioner
DX: R06.83 Snoring (principal); R06.81 Apnea, not elsewhere classified
CPT/HCPCS: 95800

== ENCOUNTER 2023-03-07 08:18 | Outpatient (CLI) | payer OTHER, SELFPAY ==
--- NOTE | 2023-03-19 16:00 | WPDSLEEPSTUD ---
Sleep Study Date of Study: 03/07/23 Ordering Provider: Lona Busch NP Interpreting Physician: Tracy Malik DO Sleep Study Type: Polysomnogram Height: 1.73 m Weight: 86.183 kg Body Mass Index: 28.8 Neck Circumference (inches): 14.5 [place]: 5 Reason for Sleep Study The patient had a WatchPAT home sleep test on 02/21/2023 that showed an overall AHI of 4.2 but a RDI of 20. Sleep History The patient is a 47-year-old male with GERD, eosinophilic esophagitis, history of tobacco use and osteoarthritis that had a sleep study ordered by his primary care for evaluation of sleep apnea.? The patient denies awakening from sleep short of breath.? He frequently awakens at night with heartburn, belching or cough.? He frequently snores and is occasionally loud enough that others complain.? He frequently has trouble sleeping when he has a cold.? He denies waking up gasping for air throughout the night.? He occasionally has breathing problems at night observed by himself or others.? He constantly sweats excessively at night.? He denies having heart palpitations or irregular heartbeats during the night.? He rarely falls asleep during the day but never while driving.? He denies cataplexy.? He rarely has trouble at school or work due to sleepiness.? He rarely feels unable to move 1 waking up or falling asleep.? He occasionally experiences vivid dreamlike scenes upon awakening or falling asleep.? He denies feeling afraid of going to sleep.? He rarely has nightmares.? He occasionally remembers his dreams.? He denies having thoughts racing through his mind.? He denies feeling sad, depressed or anxious.? He denies having muscular tension.? He occasionally notices parts of his body jerk.? He occasionally kicks during the night.? He denies having crawling and aching feelings in his legs but rarely has leg pain during the night.? He occasionally grinds his teeth during sleep but rarely awakens with morning jaw pain.? He denies being bothered by pain during the day and denies being awakened by pain during the night.? He occasionally wakes up feeling stiff in the morning.? He occasionally wakes up with sore or achy muscles.? He occasionally wakes up with pain in the neck, spine and other joints.? He goes to bed at 10:00 p.m. on weekdays and 11:00 p.m. on the weekends.? It takes him 15-20 minutes to fall asleep.? He wakes up 2-3 times throughout the night to urinate and it can take 15-20 minutes for him to fall back asleep.? He wakes up at 5:30 a.m. on weekdays and at 6:30 a.m. on weekends.? He typically gets 6-7 hours of sleep per night.? He will stay in bed for 20 minutes after waking up in the morning.? He currently lives with his daughter.? He denies consuming any caffeinated beverages within 2 hours of bedtime.? He denies engaging in physical exercise before bedtime.? He denies reading and watching television before falling asleep.? He denies taking naps in afternoon or the evening. He consumes 3 cups of coffee per day.? He quit smoking cigarettes 10 years ago.? He consumes 12-18 beers per week.? He denies recreational drug use. [facility] Past Medical History Medical History Bronchitis GERD (gastroesophageal reflux disease) Osteoarthritis Surgical History Surgical History History of vasectomy Family History Family History Mother Hypertension Social History Social History Social History: Caffeine-coffee Smoking status: Former smoker Tobacco type: cigarettes Alcohol intake: current Drinks per week: 12 Alcohol use details: BEERS Substance use: never Substance use type: does not use Lack of Transportation: No Lack of Food: Never True Current Housing: I Have Housing Concerned About Future Housing: No Difficulty Payi
[2023-03-19 16:10] VITALS: BMI 28.8
== END 2023-03-08 05:35 | disposition home or self-care (01) ==
LOC: ANHCSM 08:19
PROVIDERS: PCP Internal Medicine; Visit Provider Nurse Practitioner
DX: G47.30 Sleep apnea, unspecified (principal)
CPT/HCPCS: 95810

== ENCOUNTER 2023-03-27 07:18 | Outpatient (CLI) | payer OTHER, SELFPAY | END 2023-03-27 07:19 | disposition home or self-care (01) | LOC: ANHLAB 07:19 | PROVIDERS: PCP Internal Medicine; Visit Provider Clinical Nurse Specialist | DX: G47.61 Periodic limb movement disorder (principal) | CPT/HCPCS: 36415; 82728 ==

== ENCOUNTER 2023-06-20 15:30 | Outpatient (CLI) | payer OTHER, SELFPAY | END 2023-06-20 15:31 | disposition home or self-care (01) | LOC: ANHLAB 15:31 | PROVIDERS: PCP Internal Medicine; Visit Provider Nurse Practitioner | DX: G47.61 Periodic limb movement disorder (principal) | CPT/HCPCS: 36415; 82728 ==

== ENCOUNTER 2024-03-20 07:22 | Outpatient (CLI) | payer OTHER, SELFPAY ==
--- OUTSIDE RECORDS SUMMARY | 2024-03-20 07:26 | XMS_ITS | Clinical Summary ---
Author Organization [facility] Address [address] [place] [id number] Care Team Providers Care Interpretive Naturalist Name Role Phone Unavailable Primary Care Provider Unavailabl e Social History Tobacco Use Types Packs/Day Years Used Date Smoking Tobacco: Never Assessed Sex and Gender Information Value Date Recorded Sex Assigned at Not on file Legal Sex Male 6:41 PM CDT Gender Identity Not on file Sexual Orientation Not on file Last Filed Vital Signs Vital Sign Reading Time Taken Comments Blood Pressure 122/76 08/23/2012 12:19 PM CDT Pulse 79 08/23/2012 12:19 PM CDT Temperature - - Respiratory Rate - - Oxygen Saturation - - Inhaled Oxygen Concentration - - Weight 100.2 kg (221 lb) 08/23/2012 12:19 PM CDT Height - - Body Mass Index - - Plan of Treatment Health Maintenance Due Date Last Done Comments Colorectal Cancer Screening Colonoscopy (10 Years) 1975 Annual Physical 11/19/1978 Hepatitis C 11/19/1993 DTaP, Tdap and Td Vaccines ( 1 - Tdap) 11/19/1994 Hepatitis B Vaccines (1 of 3 - 19+ 3-dose series) 11/19/1994 COVID-19 Vaccine (2023-2 5 season) 2023 Influenza Adult (#1) 2023 Meningococcal B Vaccine Aged Out No l onger eligible based on patient's age to complete this topic Meningococcal Vaccine Aged Out No carloz zelalem eligible based on patient's age to complete this topic Pneumococcal Vaccine: Pediat rics (0 to 5 Years) and At-Risk Patients (6 to 64 Years) Aged Out No longer eligible b ased on patient's age to complete this topic RSV Immunizations Under 20 Months Aged Out No longer eligible based on patient's age to complete this topic
--- OUTSIDE RECORDS SUMMARY | 2024-03-20 07:26 | XMS_ITS | Clinical Summary ---
Author Organization [facility] Address [address] [place] [address] Care Team Providers Care Broadcast Checker Name Role Phone Donavon Payton DO Primary Care Provider [phone] Source Comments [facility],non-owned Affiliates and Associated Physician Practices is amultiple site organization consisting of ambulatory clinics and hospital sitesin [place], [place]. This disclosure is being madepursuant to the Care Everywhere program and may not contain all information available regarding this patient. Last updated 17.[employer] [facility] Allergies No known active allergies Medications * Be aware that medications may not be up to date on this document. Alwaysverify current medications with the patient. Medication Sig Dispensed Refills Start Date End Date Status diclofenac sodium EC (Voltaren) 75 MG tablet Take 1 (one) tablet by mouth 2 times daily 07/19/2022 Active fluticasone propionate (Flonase) 50 MCG/ACT nasal spray [place] 2 (two) sprays into each nostril as directed 04/05/2022 Active lidocaine viscous (Xylocaine) 2 % solution Take 1 mL by mouth as directed 01/29/2022 Active pantoprazole EC (Protonix) 40 MG tablet Take 1 (one) tablet by mouth every morning 07/02/2022 Active predniSONE (Deltasone) 10 MG tablet Take 1 (one) tablet by mouth as directed 06/21/2022 Active ferrous sulfate 325 (65 FE) MG tablet Take 1 (one) tablet by mouth daily with breakfast Active imiquimod (Aldara) 5 % cream Apply to affected area as needed 06/15/2023 Active montelukast (Singulair) 10 MG tablet Take 1 (one) tablet by mouth once daily 90 tablet 01/27/2024 Active Active Problems Problem Noted Date Diagnosed Date Osteoarthrosis 11/01/2022 11/01/2022 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 11/01/2022 Pain of right forearm 06/21/2022 11/01/2022 Radial tunnel syndrome 06/21/2022 3 Encounters Date Type Department Care Team Description 02/27/2024 Travel 01/27/2024 9:00 AM TODDLER CAREGIVER Office Visit [facility] - ENT [address] [place] [phone] Tonio Albert MD ETD (Eustachian tube dysfunction), left (Primary Dx); Ear fullness, left 01/27/2024 8:30 AM TODDLER CAREGIVER Testing Visit [facility] - ENT [address] [place] [phone] Nohemi mE AuD Pressure sensation in left ear 01/27/2024 Travel from Last 3 Months Immunizations Name Administration Dates Next Due Covid natue primary monoval ent 12+ yr 0.3mL Purple cap 01/31/2021,06/02/2020,05/12/2020 INFLUENZA VACCINE, TRIV. ([place] UZONE; FLULAVAL; FLUARIX; AFLURIA TRIVALENT; 6MO+), 0.5 ML (IIV3) 11/24/2018 Social History Tobacco Use Types Packs/Day Years Used Date Smoking Tobacco: Former Cigarettes 0.5 3 2 009 - 2012 Smokeless Tobacco: Never Tobacco Cessation:Counseling Given: Not Answered Alcohol Use Standard Drinks/Week Comments Yes 12 (1 standard drink = 0.6 oz pu re alcohol) AUDIT-C Answer Date Recorded Q1: How often do you have a drink containing alc ohol? 2-3 times a week 04/10/2023 Q2: How many drinks containi ng alcohol do you have on a typical day when you are drinking? 1 or 2 04/10/2023 Q3: How often do you have si x or more drinks on one occasion? Never 04/10/2023 Sex and Gender Information Value Date Recorded Sex Assigned at Not on file Gender Identity Not on file Sexual Orientation Not on file Last Filed Vital Signs Vital Sign Reading Time Taken Comments Blood Pressure 117/78 01/27/2024 8:19 AM TODDLER CAREGIVER Pulse 105 01/27/2024 8:19 AM TODDLER CAREGIVER Temperature 36.7 C (98 F) 04/10/2023 10:23 AM TODDLER CAREGIVER Respiratory Rate 14 04/10/2023 10:45 AM TODDLER CAREGIVER Oxygen Saturation 97% 04/10/2023 10:45 AM TODDLER CAREGIVER Inhaled Oxygen Concentration - - Weight 91.8 kg (202 lb 6.4 oz) 01/27/2024 8:19 A M TODDLER CAREGIVER Height 177.8 cm (5' 10 ) 01/27/2024 8:19 AM TODDLER CAREGIVER Body Mass Index 29.04 01/27/2024 8:19 AM TODDLER CAREGIVER Plan of Treatment Upcoming Encounters Date Type Department Care Team (Late st Contact Info) Description 06/08/2024 10:45 AM CDT Office Visit [facility] - ENT [address] [place] [phone] Tonio Albert MD [address] [place] [address] Health Maintenance Due Date Last Done Comments COLOGUARD (AGES 45-75) - COL ON CA SCREENING 1975 COLON MONITORING 1975 COLONOSCOPY - COLON CA SCREENING 1975 CT COLONOGRAPHY - COLON CA SCREENING 1975 Colorectal Cancer Screening 1975 FIT - COLON CA SCREENING 1975 FLEX SIG - COLON CA SCREENING 1975 LIPID TESTING 1975 HIV SCREENING 11/19/1990 HEPATITIS C SCREENING 11/15/1993 DTAP/TDAP/TD VACCINES (1 - Tdap) 11/19/1994 HEPATITIS B VACCINE (1 of 3 - 19+ 3-dose series) 11/19/1994 SCREENING FOR DIABETES 07/31/2022 COVID-19 VACCINE ( - 2023-2 5 season) 2023 01/31/2021, 06/02/2020, 05/12/2020 INFLUENZA VACCINE (#1) 2023 11/24/2018 DEPRESSION SCREENING 02/12/2024 ZOSTER VACCINE (1 of 2) 11/19/2025 HIB VACCINE Aged Out No longer eligi ble based on patient's age to complete this topic HPV VACCINE Aged Out No longer eligi ble based on patient's age to complete this topic MENINGOCOCCAL (Group B) VACCINE Aged Out No longer eligible b ased on patient's age to complete this topic MENINGOCOCCAL VACCINE Aged Out No carloz zelalem eligible based on patient's age to complete this topic PNEUMOCOCCAL VACCINE Aged Out No long er eligible based on patient's age to complete this topic Procedures Procedure Name Priority Date/Time Associated Diagnosis Comments AUDIOLOGY/TYMPANOME TRY ORDER Routine 01/27/2024 8:33 AM TODDLER CAREGIVER from Last 3 Months Results * AUDIOLOGY/TYMPANOMETRY ORDER (01/27/2024 8:33 AM TODDLER CAREGIVER) Hui Em Shakir Song - 01/27/2024 8:55 AM TODDLER CAREGIVER History: Buzz Knight arrived for a hearing evaluation. Patient reports continued issues with ear pressure in the left ear. He previously had a balloon dilation in that ear and feels his symptoms are better, but still not equal to the right ear. When he flies on an airplane, he has a difficulty time equalizing the pressure in the left ear. Results: Puretone air/bone conduction testing revealed normal hearing in both ears. Speech understanding was excellent in the right ear and excellent in the left ear. When compared to the previous hearing test, today's results do not indicate a change in hearing. Immittance measures revealed a Type A tympanogram in the right ear, indicating normal middle ear function. Results for the left ear revealed a Type A tympanogram, indicating normal middle ear function in that ear. These results were discussed in detail with the patient and all pertinent questions were answered. Recommendations: 1) ENT consult. 2) Re check per medical recommendation, or if a change in hearing is suspected. 3) Hearing protection in noise. Shakir Streeter. [facility]-A Clinical Paster Supervisor [facility]-Department of Otolaryngology/Aud[facility] [address] [place] [address]. ([facility] [place] [address] Nohemi Schilling AUDIOLOGY SERVICES O RDERABLES from Last 3 Months Care Teams Broadcast Checker Relationship Specialty Start Date End Date Donavon Payton DO PCP - General 02/08/22
--- OUTSIDE RECORDS SUMMARY | 2024-03-20 07:27 | XMS_ITS | Referral Summary ---
Author Organization [facility] Address [address] [place] [address] Care Team Providers Care Metal Sprayer Protective Coating Name Role Phone Donavon Payton DO Primary Care Provider [phone] Source Comments [facility],non-owned Affiliates and Associated Physician Practices is amultiple site organization consisting of ambulatory clinics and hospital sitesin [place], [place], [place] and [place]. This disclosure is being madepursuant to the Care Everywhere program and may not contain all information available regarding this patient. Last updated 17.[facility] Encounters Date Type Department Care Team Description 02/27/2024 Travel 01/27/2024 Travel 01/27/2024 8:30 AM ENTRY TABLE OPERATOR Testing Visit [facility] - ENT [address] [place] [phone] Nohemi Em AuD Pressure sensation in left ear 01/27/2024 9:00 AM ENTRY TABLE OPERATOR Office Visit [facility] - ENT [address] [place] [phone] Tonio Albert MD ETD (Eustachian tube dysfunction), left (Primary Dx); Ear fullness, left from Last 3 Months Allergies No known active allergies Medications * Be aware that medications may not be up to date on this document. Alwaysverify current medications with the patient. Medication Sig Dispensed Refills Start Date End Date Status diclofenac sodium EC (Voltaren) 75 MG tablet Take 1 (one) tablet by mouth 2 times daily 07/19/2022 Active fluticasone propionate (Flonase) 50 MCG/ACT nasal spray [place] 2 (two) sprays into each nostril as [...] forearm 06/21/2022 11/01/2022 Radial tunnel syndrome 06/21/2022 Immunizations Name Administration Dates Next Due [place] [employer] primary monoval ent 12+ yr 0.3mL Purple [...] Comments Blood Pressure 117/78 01/27/2024 8:19 AM ENTRY TABLE OPERATOR Pulse 105 01/27/2024 8:19 AM ENTRY TABLE OPERATOR Temperature 36.7 C (98 F) 04/10/2023 10:23 AM ENTRY TABLE OPERATOR Respiratory Rate 14 04/10/2023 10:45 AM ENTRY TABLE OPERATOR Oxygen Saturation 97% 04/10/2023 10:45 AM ENTRY TABLE OPERATOR Inhaled Oxygen Concentration - - Weight 91.8 kg (202 lb 6.4 oz) 01/27/2024 8:19 A M ENTRY TABLE OPERATOR Height 177.8 cm (5' 10 ) 01/27/2024 8:19 AM ENTRY TABLE OPERATOR Body Mass Index 29.04 01/27/2024 8:19 AM ENTRY TABLE OPERATOR Functional Status Functional Status Response Date of Assess ment Is person deaf or have serious hearing difficult y? No 04/10/2023 Is person blind or have serious difficulty seein g? No 04/10/2023 Does person have serious dif ficulty walking/climbing stairs? No 04/10/2023 Does person have difficulty dressing/bathing? No 04/10/2023 Does person have difficulty doing errands alone? No 04/10/2023 Cognitive Status Response Date of Assessm ent Does person have difficulty concentrating/remembering/making decisions? No 04/10/2023 Plan of Treatment Upcoming Encounters Date Type Department Care Team (Late st Contact Info) Description 06/08/2024 10:45 AM CDT Office Visit [facility] - [facility]NT [address] [place] [phone] Tonio Albert MD [address] [place] [address] Procedures Procedure Name Priority Date/Time Associated Diagnosis Comments AUDIOLOGY/TYMPANOME TRY ORDER Routine 01/27/2024 8:33 AM ENTRY TABLE OPERATOR from Last 3 Months Results * AUDIOLOGY/TYMPANOMETRY ORDER (01/27/2024 8:33 AM ENTRY TABLE OPERATOR) Narrative Nohemi Em AuD - 01/27/2024 8:55 AM ENTRY TABLE OPERATOR History: Buzz Knight arrived for a hearing [...] 3) Hearing protection in noise. Shakir Streeter. [facility]-A Clinical Industrial Refrigeration Mechanic [facility]-Department of Otolaryngology/Audiology [facility] for [facility] [address] [place] [address] ([facility]) [place] [address] Nohemi Schilling AUDIOLOGY SERVICES O RDERABLES from Last 3 Months Care Teams Metal Sprayer Protective Coating Relationship Specialty Start Date End Date Donavon Payton DO PCP - General 02/08/22
--- OUTSIDE RECORDS SUMMARY | 2024-03-20 07:27 | XMS_ITS | Patient Health Summary ---
Author Organization [facility] [employer] Address [address] [place] [address] Care Team Providers Care Valve Steamer Name Role Phone Donavon Payton DO Primary Care Provider [phone] Note from [facility],non-owned Affiliates and Associated Physician Practices is amultiple site organization consisting of ambulatory clinics and hospital sitesin [place], [place], [place] and [place]. This disclosure is being madepursuant to the Care Everywhere program and may not contain all information available regarding this patient. Last updated 17.[facility] [employer] Allergies No known active allergies Medications * Be aware that medications may not be up to date on this document. Alwaysverify current medications with the patient. * diclofenac sodium EC (Voltaren) 75 MG tablet(Started 07/19/2022) Take 1 (one) tablet by mouth 2 times daily * fluticasone propionate (Flonase) 50 MCG/ACT nasal spray(Started 04/05/2022) [place] 2 (two) sprays into each nostril as directed * lidocaine viscous (Xylocaine) 2 % solution(Started 01/29/2022) Take 1 mL by mouth as directed * pantoprazole EC (Protonix) 40 MG tablet(Started 07/02/2022) Take 1 (one) tablet by mouth every morning * predniSONE (Deltasone) 10 MG tablet(Started 06/21/2022) Take 1 (one) tablet by mouth as directed * ferrous sulfate 325 (65 FE) MG tablet Take 1 (one) tablet by mouth daily with breakfast * imiquimod (Aldara) 5 % cream(Started 06/15/2023) Apply to affected area as needed * montelukast (Singulair) 10 MG tablet(Started 01/27/2024) Take 1 (one) tablet by mouth once daily Active Problems Problem Noted Date Diagnosed Date Osteoarthrosis 11/01/2022 11/01/2022 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 (FLUZONE; FLULAVAL; FLUARIX; AFLURIA TRIVALENT; 6MO+), 0.5 ML (IIV3)(Given 11/24/2018) Social History Tobacco Use Types Packs/Day Years Used Date Smoking Tobacco: Former Cigarettes 0.5 3 2 009 - 2011 Smokeless Tobacco: Never Tobacco Cessation:Counseling Given: Not [...] Comments Blood Pressure 117/78 01/27/2024 8:19 AM ELECTRONICS INSTRUCTOR Pulse 105 01/27/2024 8:19 AM ELECTRONICS INSTRUCTOR Temperature 36.7 C (98 F) 04/10/2023 10:23 AM ELECTRONICS INSTRUCTOR Respiratory Rate 14 04/10/2023 10:45 AM ELECTRONICS INSTRUCTOR Oxygen Saturation 97% 04/10/2023 10:45 AM ELECTRONICS INSTRUCTOR Inhaled Oxygen Concentration - - Weight 91.8 kg (202 lb 6.4 oz) 01/27/2024 8:19 A M ELECTRONICS INSTRUCTOR Height 177.8 cm (5' 10 ) 01/27/2024 8:19 AM ELECTRONICS INSTRUCTOR Body Mass Index 29.04 01/27/2024 8:19 AM ELECTRONICS INSTRUCTOR Procedures * AUDIOLOGY/TYMPANOMETRY ORDER(Performed 01/27/2024) * TN REMOVE CERUMEN IMPACTED W INSTR LEFT EAR(Performed 07/12/2023) Performed for ETD (Eustachian tube dysfunction), left, Left ear impacted cerumen * TN SURG NASOPHARYNGOSCOPY DILAT EUSTACHIAN(Performed 04/10/2023) Performed for Eustachian tube dysfunction, left * LARYNGEAL MASK AIRWAY(Performed 04/10/2023) * IMAGING/RADIOLOGY/XRAY RESULTS ORDER(Performed 11/21/2022) * AUDIOLOGY/TYMPANOMETRY ORDER(Performed 07/31/2022) Results * AUDIOLOGY/TYMPANOMETRY ORDER (01/27/2024 8:33 AM ELECTRONICS INSTRUCTOR) Nohemi Barraza AuD - 01/27/2024 8:55 AM ELECTRONICS INSTRUCTOR History: Buzz Knight arrived for a hearing [...] 3) Hearing protection in noise. Shakir Streeter. [facility]-A Clinical Contract Clerk [employer] [facility]-Department of Otolaryngology/Audiology [facility] [address] [place] [address]. ([facility]) [place] [address] Nohemi Schilling AUDIOLOGY SERVICES O RDERABLES * TN REMOVE CERUMEN IMPACTED W INSTR LEFT EAR (07/12/2023 12:08 PM CDT) Tonio Herrera MD - 07/12/2023 12:08 PM CDT Tonio Albert MD 07/12/2023 12:08 PM Procedure: Microscopic Otic Exam and Cerumen Removal Indication: Cerumen impaction. Details: Informed consent was obtained. Cerumen removal was necessary due to impaction for complete otologic exam as the entire tympanic membrane could not be visualized and audiologic performance. The patient was placed in the supine position. The operative microscope used to visualize both ear canals. Large amounts of cerumen were removed with currette and suction. A normal tympanic membrane was then visualized without effusion or cholesteatoma. The patient tolerated the procedure without complication. Tonio Albert MD PROCEDURE/MINOR S URGICAL ORDERABLES * LARYNGEAL MASK AIRWAY (04/10/2023 9:25 AM ELECTRONICS INSTRUCTOR) Beth Martinez APRN-CRNA - 04/10/2023 9:25 AM ELECTRONICS INSTRUCTOR Beth Del Real APRN-CRNA 04/10/2023 9:26 AM LMA Placement Procedure/LDA Note: Patient Location: OR. LMA Insertion Date/Time: 04/10/2023 9:20 AM Procedure: LMA. Pretreatment: 100% O2 Induction: standard IV Patient position: sniffing. Mask Ventilation: not attempted Type: LMA Size: 5 Number of Attempts: 1. Cuff inflation pressure (CM H20): 20 Placement verified by: direct visualization, bilateral breath sounds, chest auscultation and CO2 monitor Procedure Start Time: 04/10/2023 9:20 AM. Staff Section Anesthesia Provider: Beth Del Real APRN-CRNA, Performed the procedure Provider #1: Patricia Galeas MD. Patricia Galeas MD [facility] ORDERABLES * IMAGING RADIOLOGY XRAY RESULTS ORDER (11/21/2022) Anatomical Region Laterality Modality Other 11/21/2022 Narrative 11/21/2022 Ordered by an unspecified provider. Scanned Document IMAGING * AUDIOLOGY/TYMPANOMETRY ORDER (07/31/2022 3:48 PM CDT) Arlene Schilling [facility]UD[facility]OLOGY SERVICES [facility] Care Teams Valve Steamer Relationship Specialty Start Date End Date Donavon Payton DO PCP - General 02/08/22
[2024-03-20 08:29] LABS: Basophils Absolute Auto 0.1 K/mm3 (0.0-0.1); Basophils Percent Auto 1.1 % (0.2-1.2); Eosinophils Absolute Auto 0.3 K/mm3 (0-0.3); Eosinophils Percent Auto 4.4 % (0-4.4); Hematocrit 50.1 % (42.0-52.0); Hemoglobin 16.8 g/dL (14.0-18.0); Immature Granulocyte Absolute 0.02 K/mm3 (0.00-0.031); Immature Granulocyte Percent A 0.3 % (0-0.5); Lymphocytes Absolute Auto 2.39 K/mm3 (0.9-3.2); Lymphocytes Percent Auto 39.1 % (18.3-44.2); Mean Corpuscular HGB Conc 33.5 g/dl (32-36); Mean Corpuscular Hemoglobin 32.9 pg (26-34); Mean Corpuscular Volume 98.2 fl (80-100); Mean Platelet Volume 10.2 fl (7.4-10.4); Monocytes Absolute Auto 0.5 K/mm3 (0.1-0.6); Monocytes Percent Auto 7.5 % (2.6-8.5); Neutrophils Absolute Auto 2.9 K/mm3 (1.3-6.7); Neutrophils Percent Auto 47.6 % (45.5-73.1); Platelet Count Result 201 k/mm3 (150-375); Red Cell Distribution Width 11.8 % (11.5-14.5); White Blood Count 6.1 K/mm3 (4.5-10.0)
[2024-03-20 08:40] LABS: Alanine Aminotransferase 19 U/L (6-50); Albumin Level 4.4 g/dL (3.5-5.1); Alkaline Phosphatase 53 U/L (38-126); Anion Gap 7 mmol/L (4-12); Aspartate Amino Transferase 20 U/L (17-59); Bilirubin,Total 0.8 mg/dL (0.2-1.3); Blood Urea Nitrogen 24 mg/dL (9-20); Calcium 9.7 mg/dL (8.4-10.2); Carbon Dioxide 28 mmol/L (22-30); Chloride 105 mmol/L (98-107); Cholesterol 186 mg/dL (0-200); Estimated Glomerular Filt Rate > 60; Glucose 96 mg/dL (65-110); HDL Direct 71 mg/dL; Potassium 4.3 mmol/L (3.4-5.0); Sodium 140 mmol/L (137-145); Triglycerides 57 mg/dL (<150)
[2024-03-20 08:50] LABS: LDL Cholesterol Direct 101 mg/dL
== END 2024-03-20 07:23 | disposition home or self-care (01) ==
LOC: ANHLAB 07:23
PROVIDERS: PCP Internal Medicine; Visit Provider Nurse Practitioner
DX: K59.00 Constipation, unspecified (principal); G47.33 Obstructive sleep apnea (adult) (pediatric); Z13.220 Encounter for screening for lipoid disorders
CPT/HCPCS: 36415; 80053; 80061; 84443; 85025

== ENCOUNTER 2024-06-23 07:52 | Outpatient (CLI) | payer OTHER, SELFPAY ==
--- OUTSIDE RECORDS SUMMARY | 2024-06-23 08:00 | XMS_ITS | Data Portability ---
Author Organization [place] [facility] [employer], Main Office Address [address] [place] [address] Care Team Providers Care Landscape Horticulture Instructor Name Role Phone JUAN JACOBO Primary Care Provider JUAN JACOBO Referring Provider Assessment Encounter Date Assessment Date Assessment LastModified by Organization Details LastModified Time 06/21/2022 06/21/2022 Patient presents forearm pain right. He is tender over the epicondyle region much worse over the radial tunnel this reproduces his pain. He has symptoms very suggestive of this. This is to the point where he is having difficulty sleeping and it is constant. I injected him with 10 mg Kenalog 2 cc 1% lidocaine. For prescription drug management will try prednisone taper. I have instructed him in stretching I will see him back in a month for follow-up to see how he is doing. Not available 06/21/2022 10:28:34 07/19/2022 07/19/2022 Patient returns radial tunnel right. Pain which got better with the shot adjusted last. He remains symptomatic. Worse with activity somewhat relieved by rest he has taken prednisone also done some stretching. I reinjected with 10 mg Kenalog 2 cc 1% lidocaine in the area of the radial tunnel. For prescription drug management will change the Voltaren 75 mg for pain and inflammation. He is going to continue with stretching exercises at home. Follow-up in a month. [email or web address] Not available 07/19/2022 09:05:37 08/16/2022 08/16/2022 Patient returns radial tunnel symptoms persist although there overshot of this time 2nd problem [place] he now has numbness and tingling in the 4th 5th fingers more and this is bothering him at least as much as radial tunnel. He got some relief from the 1st injection not a lot from the 2nd he remains tender over the radial tunnel but now is tender over cubital tunnel has numbness in his fingers. We will get an EMG to evaluate this and I will see him back and discussed risks benefits limitations and alternatives. [email or web address] Not available 08/16/2022 09:00:03 09/18/2022 09/18/2022 Patient returns cubital tunnel right and radial tunnel right. That the pain and numbness persist he has an EMG however that showed only minimal symptoms. Based on this I told him his options are to continue with conservative treatment which she is going to try for prescription drug management will try a course of prednisone taper for pain and inflammation. And he will try to get a wrist brace and sleep with his arm and non hyperflexed position. Second option we discussed surgical intervention and I told him we could release that she has getting better would be about 80%. He wants to live with the little longer I will see him back in a month to see how he is progressing if he has any changes or problems he will call discussed. [email or web address] Not available 09/18/2022 14:35:57 Plan of Treatment Reminders Order Date Submit Date Provider Last Modified By Organization Details Last Modified Time Details Appointments None recorded. Lab None recorded. Referral None recorded. Procedures injection/a spiration joint/bursa (PROC) - in office procedure, administere d by provider 2022 023 [email or web address] 3 In-Office Order, Internal Use Only DO Not Attach Compendium DO Not Attach Compendium, Do Not Delete/merge, [id number] 3 08:57:51 injection/a spiration joint/bursa (PROC) - in office procedure, administere d by provider 2022 023 [email or web address] In-Office Order, Internal Use Only DO Not Attach Compendium DO Not Attach Compendium, Do Not Delete/merge, [id number] 3 10:13:04 Surgeries None recorded. Imaging electromyog di + nerve conduction study 2022 023 [facility] (Cardiology & Emg), [address] [place] [address] [address], [place], [address], 3 17:02:05 XR, forearm 2022 023 [email or web address] [facility] [place], [address], [place], [address], 3 10:55:34 Medication Orders prednisone 10 mg tablets in a dose pack [address] [id number], [address] [facility], [place], [place], [id number], 3 14:36:28 Kenalog 10 mg/mL suspension for injection [address] [facility], [address] [facility], [place], [place], [id number], 3 09:06:03 ropivacaine (PF) 5 mg/mL (0.5 %) injection solution [address] [facility]301, [address] [facility], [place], [id number], 3 09:06:03 diclofenac sodium 75 mg tablet,naa yed release [address] [facility]80, [address] [facility], [place], [place], [id number], 3 09:06:03 Kenalog 10 mg/mL suspension for injection [address] [facility]158, [address] [facility], [place], [place], [id number], 3 10:20:19 ropivacaine (PF) 5 mg/mL (0.5 %) injection solution [address] [facility]72, [address] [facility], [place], [id number], 3 10:20:19 prednisone 10 mg tablets in a dose pack 2022 023 irvin C[facility]96809, [address] [facility], [place], [place], [id number], 3 10:20:19 Patient TargetsNo targets recorded. Patient InstructionsNo instructions recorded. Reason for Referral None Reported. Results Created Date Observation Date Name Description Value Unit Range Abnormal Flag Note LastModifiedBy Organization Detail LastModifiedTime 06/22/19 XR, forea rm No observ ation record ed. yanni [facility] [place] [address] [facility] [address], [place], [address], 06/21/2022 10:28:49 09/13/19 23 09/12/2022 elect romyo gram + nerve condu ction study No observ ation record ed. yanni [facility] [address] [facility] [address], [place], [address], 09/12/2022 19:42:13 Result Notes None recorded. Problems Name Problem SNOMED Code Status Onset Date Resolution Date Notes Provider Name and Address Organization Details Recorded Time Osteoarthriti s 646204192 Active Not Available [facility] 3 12:45:53 Pain of right forearm 466646490 Active 2022 Karo Hdz CNA null, [employer] 3 09:41:31 Radial tunnel syndrome 200244463 Active 2022 Jonel Rico MD [address], [place], [address] , [employer] 3 10:29:13 Ulnar nerve entrapment at elbow 629718071 Active 2022 Jonel Rico MD [address], [address], [place], [address] , [employer] 3 09:02:28 Problem Notes None recorded. Procedures Surgical History Date Name Laterality Status Provider Name and Address Organization Details Recorded Time 3 Ortho - Cortisone Injection completed Jonel Rico MD [address], [address], [place], [address], [facility] [employer] [facility] 07/19/2022 09:04:49 3 Ortho - Cortisone Injection completed Jonel Rico MD [address], [place], [address], [facility] [employer] [facility] 06/21/2022 10:27:52 9 Knee Surgery completed Karo Hdz CNA [facility] [employer] [facility] 06/21/2022 09:40:30 Imaging Results Imaging Date Name Status LastModified by Organization Details LastModified Time 06/21/2022 XR, forearm completed [address] [address] [facility] [address], [place], [address], 06/21/2022 10:28:49 09/12/2022 electromyogram + nerve conduction study completed [address], [place], [address], 09/12/2022 19:42:13 Procedure Notes None recorded. Medical Equipment None Reported. Allergies No known drug allergies Medications Name Sig Start Date Stop Date Status Note LastModified by Organization Details LastModified Time prednisone 10 mg tablet active Not Available Not Available Not Available Lidocaine Viscous 2 % mucosal solution RINSE AND GARGLE 7.5 ML BY MOUTH EVERY 3 TO 4 HOURS NEEDED FOR PAIN 06/21 completed Not Available Not Available Not Available ciprofloxac in 500 mg tablet TAKE 1 TABLET BY MOUTH EVERY 12 HOURS 06/21 completed Not Available Not Available Not Available tramadol 50 mg tablet 06/21 completed Not Available Not Available Not Available prednisone 10 mg tablets in a dose pack Take 1 tab by mouth, 3 times a day for 3 daysTake 1 tab by mouth 2 times a day for 2 daysTake 1 tab by mouth once a day for 1 day 2022 active Not Available Not Available Not [facility]ge Kenalog 10 mg/mL suspension for injection in office 2022 active NDC: 0003- 0494- 20 Not Available Not Available Not Available pantoprazol e 40 mg tablet,naa yed release TAKE 1 TABLET BY MOUTH EVERY MORNING active Not Available Not Available No t Available diclofenac sodium 75 mg tablet,naa yed release TAKE 1 TABLET BY MOUTH TWICE DAILY active Not Available Not Available No t Available methylpredn isolone 4 mg tablets in a dose pack 06/21 completed Not Available Not Available Not Available fluticasone propionate 50 mcg/actuati on nasal spray,suspe nsion SHAKE LIQUID AND USE 1 TO 2 SPRAYS IN EACH NOSTRIL TWICE DAILY 06/21 completed Not Available Not Available Not Available doxycycline hyclate 100 mg tablet TAKE 1 TABLET BY MOUTH TWICE DAILY 06/21 completed Not Available Not Available Not Available amoxicillin 875 mg-potassiu m clavulanate 125 mg tablet 06/21 completed Not Available Not Available Not Available ropivacaine (PF) 5 mg/mL (0.5 %) injection solution in office 2022 active [facility] 51817 -064- 01 Not Available Not Available Not Available Vitals Date Recorded Body height Body mass index (BMI) Body weight Provider Name and Address Organization Details Last Updated DateTime 06/21/2022 177.8 cm 27.3 kg/m2 36975.55 g Karo Hdz CNA [employer] 06/21/2022 09:37:55 Date Recorded Body height Body mass index (BMI) Body weight Provider Name and Address Organization Details Last Updated DateTime 07/19/2022 177.8 cm 24.4 kg/m2 62083.7 nas Nitza Rich [employer] 07/19/2022 08:52:50 Date Recorded Body height Body mass index (BMI) Body weight Provider Name and Address Organization Details Last Updated DateTime 08/16/2022 177.8 cm 26.5 kg/m2 81329.59 nas Rich [employer] 08/16/2022 08:53:35 Date Recorded Body height Provider Name an d Address Organization Details Last Updated DateTime 09/18/2022 177.8 cm [email or web address] Michael [employer] 09/18/2022 14:14:03 Social History Question Answer Notes LastModified by Organizat ion Details LastModified Time Tobacco Smoking Status Former Smoker Karo Hdz, INBOUND INGREDIENT LOGISTICS SPECIALIST null, [place] [facility] 06/21/2022 09:40:06 When Did You Quit Smoking? 11-15yearssi [email or web address] ette Information not available 06/21/2022 Sex: Unknown Functional Status Question Answer Note LastModified by Organization D etails LastModified Time What is your level of alcohol consumption? Heavy Information not available 06/21/2022 Mental Status None recorded. Family History Relationship Description Onset Age of this Age Resolved Age Notes LastModified by Organization Details LastModified Time Paternal Uncle Family history of malignant neoplasm [email or web address] Not available 2022 09:39:23 Maternal Uncle Family history of malignant neoplasm [email or web address] Not available 2022 09:39:23 Father Diabetes mellitus [email or web address] Not available 2022 09:39:34 Medical History No medical history recorded. Past Encounters Encounter ID Performer Location Encounter Start Date Encounter Closed Date Diagnosis/Indication Diagnosis SNOMED-CT Code Diagnosis ICD10 Code Diagnosis Note [id number] Jonel Rico MD [facility] [place] [address] [place] [address] 06/21/2022 09:26:53 06/21/2022 10:55:33 Pain of right forearm 410585509 M79.631 Radial jas mayank syndrome 291491733 G56.31 [id number] Jonel Rico MD [facility] [place] [address] [place] [address] 07/19/2022 08:50:04 07/19/2022 09:14:56 Radial tunnel syndrome 841288290 G56.31 Pain of right forearm 77 4280891 M79.631 [id number] Jonel Rico MD [facility] [place] [address] [place] [address] 08/16/2022 08:48:49 08/16/2022 10:36:59 Radial tunnel syndrome 305818295 G56.31 Pain of right forearm 77 8461598 M79.631 Ulnar nerv e entrapment at elbow 507560747 G56.21 [id number] Jonel Rico MD [facility] [place] [address] [facility] [address] [place] [address] 09/18/2022 14:04:23 09/18/2022 14:44:42 Radial tunnel syndrome 904485159 G56.31 Pain of right forearm 77 9447213 M79.631 Ulnar nerv e entrapment at elbow 495653089 G56.21 Health Concerns Section Related Observation LastModified by Organization Detai ls LastModified Time None Recorded Concern Status LastModified by Organization Details LastModified Time None Recorded Advance Directives Directive None Recorded Payers Encounter Date Sequence Insurance Name Policy Number Policy Lamar Covered Member ID Lamar Member ID Guarantor Name 06/21/2022 1 [employer] Buzz Knight [id number] Buzz Knight 07/19/2022 1 [employer] Buzz Knight [id number] Buzz Knight 08/16/2022 1 [employer] Buzz Knight [id number] Buzz Knight 09/18/2022 1 [employer] Buzz Knight [id number] Buzz Knight Notes Date Note Type Note Provider Name and Address Organization Details Recorded Time 06/21/2022 text/html Patient presents for pain right. He is tender over the extensor tendon mass. He is less tender over the epicondyle pain is moderately severe it is constant at this point. Jonel Rico MD [address] [address], [place], [address], [facility] [employer] [facility] [employer] 06/21/2022 10:30:08 07/19/2022 text/html Patient presents for pain right. He is tender over the extensor tendon mass. He is less tender over the epicondyle pain is moderately severe it is constant at this point. Jonel Rico MD [address] [address], [place], [address], [facility] [employer] [facility] [employer] 07/19/2022 09:05:59 08/16/2022 text/html Patient presents for pain right. He is tender over the extensor tendon mass. He is less tender over the epicondyle pain is moderately severe it is constant at this point. Patient has secondary complaint is of numbness and tingling ulnar nerve distribution. His 4th and 5th fingers go to sleep. Jonel Rico MD [address], [place], [address], [facility] [employer] [facility] 08/16/2022 09:02:33 09/18/2022 text/html Patient presents for pain right. He is tender over the extensor tendon mass. He is less tender over the epicondyle pain is moderately severe it is constant at this point. Patient has secondary complaint is of numbness and tingling ulnar nerve distribution. His 4th and 5th fingers go to sleep. Jonel Rico MD [address], [place], [address], [email or web address] [facility] [employer] [facility] 09/18/2022 14:36:20
--- OUTSIDE RECORDS SUMMARY | 2024-06-23 08:00 | XMS_ITS | Clinical Summary ---
Author Organization [facility] Address [address] [place] [address] Care Team Providers Care Pie Crust Mixer Name Role Phone Unavailable Primary Care Provider [...] 11/19/1994 COVID-19 Vaccine (2023-2 5 season) 2023 Meningococcal B Vaccine Aged Out No l onger eligible based on patient's age to complete this topic Meningococcal Vaccine Aged Out No carloz zelalem eligible based on patient's age to complete this topic Pneumococcal Vaccine: Pediat rics (0 to 5 Years) and At-Risk Patients (6 to 49 Years) Aged Out No longer eligible b ased on patient's age to complete this topic RSV Immunizations Under 20 Months Aged Out No longer eligible based on patient's age to complete this topic
--- OUTSIDE RECORDS SUMMARY | 2024-06-23 08:00 | XMS_ITS | Clinical Summary ---
Author Organization [facility] [email or web address] Address [address] [place] [address] Care Team Providers Care Brass Pourer Name Role Phone Donavon Payton DO Primary Care Provider [phone] Source Comments [facility] [email or web address],non-owned Affiliates and Associated Physician Practices is amultiple site organization consisting of ambulatory clinics and hospital sitesin [place], [place], [place] and [place]. This disclosure is being madepursuant to the Care Everywhere program and may not contain all information available regarding this patient. Last updated [email or web address] Allergies No known active allergies Medications * Be aware that medications may not be up to date on this document. Alwaysverify current medications with the patient. diclofenac sodium EC (Voltaren) 75 MG tablet Take 1 (one) tablet by mouth 2 times daily 3 Active fluticasone propionate (Flonase) 50 MCG/ACT nasal spray Mcandrews 2 (two) sprays into each nostril as directed 3 Active lidocaine viscous (Xylocaine) 2 % solution Take 1 mL by mouth as directed 2 Active pantoprazole EC (Protonix) 40 MG tablet Take 1 (one) tablet by mouth every morning 3 Active predniSONE (Deltasone) 10 MG tablet Take 1 (one) tablet by mouth as directed 3 Active ferrous sulfate 325 (65 FE) MG tablet Take 1 (one) tablet by mouth daily with breakfast Active imiquimod (Aldara) 5 % cream Apply to affected area as needed 4 Active montelukast (Singulair) 10 MG tablet Take 1 (one) tablet by mouth once daily 90 tablet 12/16/202 4 Active Active Problems Problem Noted Date Diagnosed Date Osteoarthrosis 11/01/2022 11/01/2022 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 11/01/2022 Pain of right forearm 06/21/2022 11/01/2022 Radial tunnel syndrome 06/21/2022 3 Immunizations Immunization Administration Dates Next Due CovAmpliSense primary monoval ent 12+ yr 0.3mL Purple [...] at Not on file Legal Sex Male 1:44 PM MANAGING EDITOR Gender Identity Not on file Sexual Orientation Not on file Last Filed Vital Signs Vital Sign Reading Time Taken Comments Blood Pressure 117/78 01/27/2024 8:19 AM MANAGING EDITOR Pulse 105 01/27/2024 8:19 AM MANAGING EDITOR Temperature 36.7 C (98 F) 04/10/2023 10:23 AM MANAGING EDITOR Respiratory Rate 14 04/10/2023 10:45 AM MANAGING EDITOR Oxygen Saturation 97% 04/10/2023 10:45 AM MANAGING EDITOR Inhaled Oxygen Concentration - - Weight 91.8 kg (202 lb 6.4 oz) 01/27/2024 8:19 A M MANAGING EDITOR Height 177.8 cm (5' 10 ) 01/27/2024 8:19 AM MANAGING EDITOR Body Mass Index 29.04 01/27/2024 8:19 AM MANAGING EDITOR Plan of Treatment Health Maintenance Due Date [...] 11/19/1994 SCREENING FOR DIABETES 07/31/2022 COVID-19 VACCINE (4 - 2023-2 5 season) 2023 01/31/2021, 06/02/2020, 05/12/2020 DEPRESSION SCREENING 02/12/2024 INFLUENZA VACCINE (Season Ended) 2024 11/24/2018 ZOSTER VACCINE (1 of 2) 11/19/2025 HIB VACCINE Aged Out No longer eligi ble based on patient's age to complete this topic HPV VACCINE Aged Out No longer eligi ble based on patient's age to complete this topic MENINGOCOCCAL (Group B) VACCINE SHARED DECISION-MAKING Aged Out No longer eligible based on patient's age to complete this topic MENINGOCOCCAL GROUPS A/C/Y/W VACCINE Aged Out No longer eligible b ased on patient's age to complete this topic PNEUMOCOCCAL VACCINE Aged Out No long er eligible based on patient's age to complete this topic Insurance [employer] Care Teams Brass Pourer Relationship Specialty Start Date End Date Donavon Payton DO PCP - General 02/08/22
--- OUTSIDE RECORDS SUMMARY | 2024-06-23 08:00 | XMS_ITS | Referral Summary ---
Author Organization [facility] Address [address] [place] [address] Care Team Providers Care Integration Director Name Role Phone Donavon Payton DO Primary Care Provider [phone] Encounters Date Type Department Care Team Description 05/27/2024 Documentation [facility] Vascular and Vein Surgery [address] [phone] Eva Reece MA 05/27/2024 Documentation [facility] Vascular and Vein Surgery [address] [place] [phone] Eva Reece MA 05/27/2024 Documentation [facility] Vascular and Vein Surgery [address] [place] [phone] Eva Reece MA 05/22/2024 Documentation [facility] Vascular and Vein Surgery [address] [place] [phone] Eva Reece MA 05/20/2024 8:30 AM CDT Office Visit [facility] Vascular at [address] [place] [phone] Tracy Lutz NP Varicose veins of right lower extremity with pain (Primary Dx) 05/12/2024 2:00 PM CDT Ancillary Procedure [facility] Vascular and Vein Surgery at [address] [place] [phone] Varicose veins of lower extremity with pain, right 04/29/2024 Orders Only [facility] Vascular at [address] [place] [phone] Addison Turner MD Varicose veins of lower extremity with pain, right (Primary Dx) 04/29/2024 8:30 AM CDT Office Visit [facility] Vascular at [address] [place] [phone] Addison Turner MD Varicose veins of calf from Last 3 Months Allergies No known active allergies Medications pantoprazole DR (PROTONIX) 40 mg EC tablet Take 1 tablet (40 mg total) by mouth every morning Active ferrous sulfate 325 mg (65 mg of elemental iron) tablet Take 1 tablet (325 mg total) by mouth daily Active Active Problems Problem Noted Date Diagnosed Date Varicose veins of right lower extremity with arie n 04/29/2024 Assessment & Plan (05/20/2024 9:03 AM CDT): Impression: Patient has bulky varicosities to the right lateral posterior calf extending to the knee. He continues to complain of discomfort associated with his varicosities despite compression therapy, leg elevation and exercise. Venous reflux study did not show any significant reflux throughout the right great saphenous vein. Plan: Recommend right lower extremity stab phlebectomy. Risks of the procedure communicate with the patient to include bleeding and infection. Patient voices understanding of these risks and wishes to proceed. -continue utilizing compression therapy until his scheduled procedure. 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 Continue compression therapy. 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 Gender Identity Not on file Sexual Orientation Not on file Last Filed Vital Signs Vital Sign Reading Time Taken Comments Blood Pressure 113/78 05/20/2024 8:31 AM CDT Pulse 79 05/20/2024 8:31 AM CDT Temperature - - Respiratory Rate - - Oxygen Saturation 96% 05/20/2024 8:31 AM CDT Inhaled Oxygen Concentration - - Weight 86.2 kg (190 lb) 05/20/2024 8:31 AM CDT Height 177.8 cm (5' 10 ) 05/20/2024 8:31 AM CDT Body Mass Index 27.26 05/20/2024 8:31 AM CDT Plan of Treatment Not on file Procedures Procedure Name Priority Date/Time Associated Diagnosis Comments US VEIN DUPLEX REFLUX RIGHT Schedule Routine, Read Routine (OP Routine) 05/12/2024 2:26 PM CDT Varicose veins of lower extremity with pain, right from Last 3 Months Results * US Vein Duplex Reflux Right (05/12/2024 2:26 PM CDT) Anatomical Region Laterality Modality Vascular Right Ultrasound 05/12/2024 2:03 PM CDT Narrative 05/14/2024 12:51 PM CDT Vascular & Vein Surgery [address] [place] [address] Lower Extremity Venous Reflux Duplex Report Patient Name: BUZZ KNIGHT E : 1975 (48y 5m) Study Date: 05/12/2024 2:03:00 PM Gender: M Goodwill Representative: Location: [facility] Ref Provider: ADDISON TURNER Quality: Adequate Order Provider: ADDISON TURNER PROCEDURES: Vascular Report: Lower extremity venous valvular insufficiency or reflux evaluation is performed with manual augmentation. Veins evaluated are sapheno-femoral junction, great saphenous, common femoral, femoral, profunda femoral, popliteal, sapheno-popliteal and small saphenous veins bilaterally. Criteria for superficial vein reflux is retrograde blood flow greater than 0.5 seconds in the standing position. INDICATIONS: RLE posterior/lateral calf varicose veins. HISTORY: No PMH. COMPARISONS: No previous exams. MEASUREMENTS: Right Value Left Value Rt Sapheno-Femoral Junction 7.28 mm Lt Sapheno-Femoral Junction mm Rt Great Saphenous Thigh - Proximal 3.49 mm Lt Great Saphenous Thigh - Proximal mm Rt Great Saphenous Knee 3.02 mm Lt Great Saphenous Calf - Proximal mm Rt Great Saphenous Calf - Proximal 3.97 mm Lt Sapheno-Popliteal Junction mm Rt Sapheno-Popliteal Junction 7.67 mm Lt Small Saphenous Proximal mm Rt Small Saphenous Proximal 3.45 mm Lt Small Saphenous Mid mm Rt Small Saphenous Mid 2.70 mm Lt Anterior Accessory Proximal mm Rt Anterior Accessory Proximal 3.00 mm Lt Anterior Accessory Mid mm Rt Anterior Accessory Mid mm Rt CFV Reflux Time 0.00 sec Rt SFJ Reflux Time 0.24 sec Rt GSV Thigh Reflux Time 0.00 sec Rt FV Mid Reflux Time 2.19 sec Rt GSV Knee Reflux Time 0.00 sec Rt GSV Calf Prx Reflux 0.00 sec Rt Popliteal Reflux Time 5.22 sec Rt SPJ Reflux Time 5.31 sec Rt SSV Prx Reflux 0.17 sec Rt SSV Mid Reflux 0.22 sec Rt AAGSV Reflux Time 0.00 sec Right Value Left Value FINDINGS: Patient positioning: Reflux testing is performed in steep reverse Trendelenburg position. Right: The common femoral, femoral, popliteal, and calf veins were evaluated with compression maneuvers. No evidence of deep vein thrombus by duplex. No evidence of superficial vein thrombus on the right. On the right venous reflux noted in mid femoral vein, popliteal vein and sapheno-popliteal junction. Skein Yarn Dyer Helper vein noted at distal calf, 2.3 mm, 0 second reflux. Large varicose vein seen at saphenopopliteal junction. CONCLUSIONS: No significant reflux in the right great saphenous vein, reflux at the saphenous popliteal junction. ATTESTATION: I have reviewed and interpreted the pertinent images and measurements of this study. I attest to the conclusions in the final report that is provided above. Electronically Signed By: Addisno Turner MD 05/14/2024 12:47:27 PM CDT Procedure Note Addison Turner MD - 05/14/2024 Vascular & Vein Surgery [facility] [place] [address] Lower Extremity Venous Reflux Duplex Report Patient Name: BUZZ KNIGHT E : 1975 (48y 5m) Study Date: 05/12/2024 2:03:00 PM Gender: M Goodwill Representative: NANCY Location: [facility] Ref Provider: ADDISON TURNER Quality: Adequate Order Provider: ADDISON TURNER PROCEDURES: Vascular Report: Lower extremity venous valvular insufficiency or reflux evaluation isperformed with manual augmentation. Veins evaluated are sapheno-femoral junction, great saphenous, commonfemoral, femoral, profunda femoral, popliteal, sapheno-popliteal and small saphenous veinsbilaterally. Criteria for superficial vein reflux is retrograde blood flow greater than0.5 seconds in the standing position. INDICATIONS: RLE posterior/lateral calf varicose veins. HISTORY: No PMH. COMPARISONS: No previous exams. MEASUREMENTS: Right Value Left Value Rt Sapheno-Femoral Junction 7.28 mm Lt Sapheno-Femoral Junction mm Rt Great Saphenous Thigh - Proximal 3.49 mm Lt Great Saphenous Thigh -Proximal mm Rt Great Saphenous Knee 3.02 mm Lt Great Saphenous Calf - Proximal mm Rt Great Saphenous Calf - Proximal 3.97 mm Lt Sapheno-Popliteal Junctionmm Rt Sapheno-Popliteal Junction 7.67 mm Lt Small Saphenous Proximal mm Rt Small Saphenous Proximal 3.45 mm Lt Small Saphenous Mid mm Rt Small Saphenous Mid 2.70 mm Lt Anterior Accessory Proximal mm Rt Anterior Accessory Proximal 3.00 mm Lt Anterior Accessory Mid mm Rt Anterior Accessory Mid mm Rt CFV Reflux Time 0.00 sec Rt SFJ Reflux Time 0.24 sec Rt GSV Thigh Reflux Time 0.00 sec Rt FV Mid Reflux Time 2.19 sec Rt GSV Knee Reflux Time 0.00 sec Rt GSV Calf Prx Reflux 0.00 sec Rt Popliteal Reflux Time 5.22 sec Rt SPJ Reflux Time 5.31 sec Rt SSV Prx Reflux 0.17 sec Rt SSV Mid Reflux 0.22 sec Rt AAGSV Reflux Time 0.00 sec Right Value Left Value FINDINGS: Patient positioning: Reflux testing is performed in steep reverse Trendelenburg position. Right: The common femoral, femoral, popliteal, and calf veins were evaluated withcompression maneuvers. No evidence of deep vein thrombus by duplex. No evidence ofsuperficial vein thrombus on the right. On the right venous reflux noted in mid femoralvein, popliteal vein and sapheno-popliteal junction. Skein Yarn Dyer Helper vein noted at distal calf,2.3 mm, 0 second reflux. Large varicose vein seen at saphenopopliteal junction. CONCLUSIONS: No significant reflux in the right great saphenous vein, reflux at thesaphenous popliteal junction. ATTESTATION: I have reviewed and interpreted the pertinent images and measurements ofthis study. I attest to the conclusions in the final report that is provided above. Electronically Signed By: Addison Turner MD 05/14/2024 12:47:27 PM CDT Addison Turner MD [facility] [place] PROCEDURES Final Result from Last 3 Months Insurance [facility] [id number] Care Teams Integration Director Relationship Specialty Start Date End Date Donavon Payton DO PCP - General Internal Medicine 03/27/24
--- OUTSIDE RECORDS SUMMARY | 2024-06-23 08:00 | XMS_ITS | Clinical Summary ---
Author Organization [facility] Address [address] [place] [address] Care Team Providers Care Warehouse Lead Name Role Phone Donavon Payton DO Primary Care Provider [phone]- [phone] Allergies No known active allergies Medications pantoprazole [...] extremity CEAP C3 disease symptomatic varicosities, reflux melon packer ordered for further evaluation. Continue compression therapy. Encounters Date Type Department Care Team Description 05/27/2024 Documentation [facility] Vascular and Vein Surgery [address] [facility] [address] [place] [phone] Eva Reece MA 05/27/2024 Documentation [facility] Vascular and Vein Surgery [address] [facility] [address] [place] [address] Eva Reece MA 05/27/2024 Documentation [facility] Vein Surgery [address] [facility] [address] [place] [address] Eva Reece MA 05/22/2024 Documentation [facility]ascular and Vein Surgery [address] [facility] [address] [place] [address] Eva Reece MA 05/20/2024 8:30 AM CDT Office Visit [facility] Vascular at [address] [place] [phone] Tracy Lutz NP Varicose veins of right lower extremity with pain (Primary Dx) 05/12/2024 2:00 PM CDT Ancillary Procedure [facility] Vascular and Vein Surgery at [address] [place] [phone] Varicose veins of lower extremity with pain, right 04/29/2024 8:30 AM CDT Office Visit [facility] Vascular at [address] [place] [phone] Addison Turner MD Varicose veins of calf 04/29/2024 Orders Only [facility] Vascular at [address] [place] [phone] Addison Turner MD Varicose veins of lower extremity with pain, right (Primary Dx) from Last 3 Months Social History Tobacco Use Types Packs/Day Years Used Date Smoking Tobacco: Unknown Tobacco Cessation:Counseling Given: Not Answered Sex and Gender Information Value Date Recorded Sex Assigned at Not on file 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 Gender Identity Not on file Sexual Orientation Not on file Obstetrics History Last Filed Vital Signs Vital Sign Reading [...] 05/20/2024 8:31 AM CDT Plan of Treatment Health Maintenance Due Date Last Done Comments Colon Cancer Screening-Colonoscopy 1975 Depression Screening 1975 Hepatitis C Screening 1975 DTaP/Tdap/Td Vaccine (1 - Tdap) 11/19/1986 Hepatitis B Screening 11/19/1993 Regular Well Visit/Exam 18-64 11/19/1993 Covid-19 Vaccine (2023-2 5 season) 2023 01/31/2021, 06/02/2020, 05/12/2020 Influenza Vaccine (Season Ended) 2024 11/24/2018 Pneumococcal vaccine <65 Aged Out No longer eligible based on [...] PM CDT Vascular & Vein Surgery [address] [place] [address] Lower Extremity Venous Reflux Duplex Report Patient Name: BUZZ KNIGHT Brayan : 1975 (48y 5m) Study Date: 05/12/2024 2:03:00 PM Gender: M Developer Support Engineer: NANCY Location: [facility] Ref Provider: ADDISON TURNER Quality: Adequate Order [...] femoral vein, popliteal vein and sapheno-popliteal junction. Title Agent vein noted at distal calf, 2.3 mm, [...] Addison Turner MD 05/14/2024 12:47:27 PM CDT Procedure Note Addison Turner MD - 05/14/2024 Vascular & Vein Surgery [address] [place] [phone] Lower Extremity Venous Reflux Duplex Report Patient Name: BUZZ KNIGHT E : 1975 (48y 5m) Study Date: 05/12/2024 2:03:00 PM Gender: M Developer Support Engineer: Location: [facility] Ref Provider: ADDISON TURNER Quality: Adequate Order [...] mid femoralvein, popliteal vein and sapheno-popliteal junction. Title Agent vein noted at distal calf,2.3 mm, 0 [...] 05/14/2024 12:47:27 PM CDT Addison Turner MD [facility] PROCEDURES Final Result from Last 3 Months Insurance [employer] [id number] Member Subscriber Plan / Payer (Ef fective 2020-Present) Name:Buzz Knight Member ID:[id number] Relation to Subscriber:Self Name:Buzz Knight Subscriber ID:[id number] Payer ID:[id number] Type:RSP Tooling HMO/PPO Address: [facility] [id number] [place] [id number] Care Teams Warehouse Lead Relationship Specialty Start Date End Date Donavon Payton DO PCP - General Internal Medicine 03/27/24
[2024-06-23 10:42] LABS: Magnesium 2.2 mg/dL (1.6-2.3)
== END 2024-06-23 07:53 | disposition home or self-care (01) ==
LOC: ANHLAB 07:53
PROVIDERS: PCP Internal Medicine; Visit Provider Nurse Practitioner
DX: K20.0 Eosinophilic esophagitis (principal); K21.9 Gastro-esophageal reflux disease without esophagitis
CPT/HCPCS: 36415; 82607; 83735